=== PATIENT | male | born 1970 | race Caucasian/White ===

== ENCOUNTER 2017-03-05 17:29 | Inpatient (IN) | payer BC ==
--- NOTE | ~2017-03-05 | CN ---
Consultation Report [facility] [address] [place]. [address] NAME: JENNIFER WILLIAMSON : 70 STATUS : ADM IN [facility]#: [id number] AGE: 46 ADM/REG DATE : 03/05/17 MR#: [id number] REPORT SERV DATE: 03/13/17 DICTATED BY: CHRISTINE VALLES DATE: 03/13/17 REPORT STATUS : Draft TRANSCRIBED BY: MODBoni DATE: 03/13/17 GI CONSULTATION DATE OF CONSULTATION: 03/12/2017 REASON FOR CONSULTATION: Anemia and dark stools. HISTORY OF PRESENT ILLNESS: Mr. Williamson is a 46-year-old, white male with a history of morbid obesity, diabetes, who presented to [facility] with increasing anasarca. He was also recently evaluated at [facility] for kidney failure as well as cellulitis and septic joint. He had been noted to have decreasing H and H and is at 7.8 and 23.9 respectively with an MCV of 78.7. His last INR was 1.4 and platelets 231. He does have evidence of iron deficiency anemia, which is probably a combination of anemia of chronic disease. His iron was 9, TIBC 163, iron saturation 6, ferritin 401, and he does report some dark stools, but he reports that this was started during this admission. Denies any bleeding or coffee- ground/hematemesis. No prior endoscopic evaluation. PAST MEDICAL HISTORY: Diabetes, morbid obesity, knee surgery, left foot wound, toe removed. FAMILY HISTORY: Kidney disease. SOCIAL HISTORY: No smoking, alcohol, or drug use. MEDICATIONS: Reviewed. ALLERGIES: REVIEWED. PHYSICAL EXAMINATION: VITAL SIGNS: The patient is afebrile. His vital signs are stable. GENERAL: The patient is morbidly obese. No acute distress. Appears older than stated age and appears chronically ill. HEENT: Atraumatic, normocephalic. Anicteric. Mucous membranes moist. CARDIAC: S1, S2. CHEST: Clear but poor expiratory effort. ABDOMEN: Soft, nontender, and nondistended. Bowel sounds normoactive. LABORATORY DATA: Show WBC 8.8, hemoglobin 7.8, hematocrit 23.9, MCV 78.7, platelets 231. INR is 1.4. Sodium 133, potassium 3.4, chloride 98, bicarb 23, BUN 82, creatinine 3.38, baseline is about 2, glucose 123. Iron studies as dictated above. IMPRESSION/PLAN: Iron-deficiency anemia and anemia of chronic disease with worsening H and H and dark stools. We will go ahead and schedule him for both an EGD and colonoscopy to further evaluate his anemia. I reviewed the procedure indications, risks, benefits, and alternatives with him. We will go ahead and give him a clear liquid diet tomorrow and Consultation Report [address] [place]. [address] NAME: JENNIFER WILLIAMSON : 70 STATUS : ADM IN PAT#: [id number] AGE: 46 ADM/REG DATE : 03/05/17 MR#: [id number] REPORT SERV DATE: 03/13/17 DICTATED BY: CHRISTINE VALLES DATE: 03/13/17 REPORT STATUS : Draft TRANSCRIBED BY: JUAN DATE: 03/13/17 prepped him for EGD and colonoscopy to be performed with anesthesia on Friday. Questions and concerns were addressed. AGUILA/JUAN Christine Valles MD / [id number] CC: MD NERI Valero VICKY L
--- NOTE | ~2017-03-05 | HP ---
History And Physical [facility] [address] [place]. [address] NAME: JENNIFER WILLIAMSON : 70 STATUS : ADM IN [facility]#: [id number] AGE: 46 ADM/REG DATE : 03/05/17 MR#: [id number] REPORT SERV DATE: 03/05/17 DICTATED BY: BLAS MELLO DATE: 03/05/17 REPORT STATUS : Draft TRANSCRIBED BY: MODL DATE: 03/05/17 DATE OF ADMISSION: 03/05/2017 CHIEF COMPLAINT: Referral for admission from Nephrology, Dr. Sung for anasarca. HISTORY OF PRESENT ILLNESS: The patient is a 46-year-old male. He has a past medical history significant for diabetes, hypertension, and dyslipidemia. He had hospitalization 01/01/2017 to 01/07/2017 at [facility] for rule out septic knee cellulitis and acute kidney injury. During that hospitalization, he had a white count as high as 23,000. He had a creatinine as high as 4.94 although several days prior, it had been as high as 5.4. He was seen in consultations by Infectious Disease, Orthopedics, and Renal. He was placed on empiric antibiotics for the possibility of a septic joint although his cultures were apparently negative. He has followup scheduled with Nephrology with his PCP. He apparently also had some anemia. At some point after the surgery on his knee, he reports having several blood transfusions for that. For the past several weeks however, he has been having difficulty with worsening edema. He has seen several physicians including his PCP, a urologist, and today, Nephrology. He has been placed on lymphedema therapy. There has apparently been some attempt at diuresis but he continued to have worsening swelling, eventually presenting with scrotal and abdominal edema. When he saw Nephrology today, they documented a 50 pounds weight gain in 6 weeks and recommended inpatient diuresis and evaluation. He was noted to have a recurrent leukocytosis again today at 24,000 although his renal function was relatively stable with a creatinine of approximately 2. The patient has noted the pain and swelling in his lower extremities, scrotum, and abdomen. He has had some shortness of breath. He knows his blood pressures has been high but overall he has felt fine. He has not had any particular pain in the right knee. He has had no fevers or chills. Difficult to control blood sugars. He has been admitted today for further evaluation and treatment. PAST MEDICAL HISTORY: As covered above. PAST SURGICAL HISTORY: He has had the recent knee surgery. He has had a toe removed and he has had a foot wound in the past. CURRENT MEDICATIONS: Aspirin 81; Lipitor 40; Cartia 240; iron; Lantus 66 at bedtime; and Bystolic 10. ALLERGIES: NONE. FAMILY HISTORY: Both parents . Father had kidney disease. SOCIAL HISTORY: Nondrinker, nonsmoker. REVIEW OF SYSTEMS: HEENT: Negative. CARDIOVASCULAR: No chest pain or palpitations. PULMONARY: Exertional dyspnea. No cough. No purulent sputum. GI: No nausea, vomiting, or dysuria. He reports he is able to urinate although with some History And Physical [address] [place]. [address] NAME: JENNIFER WILLIAMSON : 70 STATUS : ADM IN [facility]#: [id number] AGE: 46 ADM/REG DATE : 03/05/17 MR#: [id number] REPORT SERV DATE: 03/05/17 DICTATED BY: BLAS MELLO DATE: 03/05/17 REPORT STATUS : Draft TRANSCRIBED BY: JUAN DATE: 03/05/17 difficulty, possibly secondary to the edema. He does not feel like he is significantly retaining urine. NEUROMUSCULOSKELETAL: He does complain of generalized tightness of his lower extremities. PHYSICAL EXAMINATION: VITAL SIGNS: On exam, vital signs, initial blood pressure was 206/91, temperature 98.2, pulse 80, and respirations 22. GENERAL: He is awake, alert, oriented, in no acute distress. HEENT: Normocephalic, atraumatic. Sclerae nonicteric. NECK: Supple. HEART: Regular rate and rhythm. LUNGS: Show decreased breath sounds bilaterally, may be due to the size. ABDOMEN: Obese with pitting edema. EXTREMITIES: Show marked dependent edema. His lower extremity lymphedema wraps were removed. He has some dry scabbing on his kaufman. He has some warmth to the right lateral lower knee, a little more so than the left but no obvious effusion or drainage or erythema. He has some generalized erythema to his lower extremities. It is uncertain whether this represents infection or edema. NEUROLOGICAL: Exam is grossly intact. LABS: As forwarded from Nephrology, sodium 137, potassium 4.6, chloride 102, CO2 of 98, BUN and creatinine are 32 and 2.0, and albumin is 2.9. H and H are 8.4 and 27.9, white count was [address], and platelets was 301. ASSESSMENT: 1. Leukocytosis indeterminate etiology. 2. Anasarca. 3. Hypertension. PLAN: 1. The patient has been admitted. 2. Pancultures. 3. We will start a diuretic drip. 4. Consult Nephrology. 5. We will restart his antibiotics this evening. 6. Blood sugar control. 7. Blood pressure control. TARIKF/JUAN Blas Mello M.D. / [id number] History And Physical [address] [address] NAME: JENNIFER WILLIAMSON : 70 STATUS : ADM IN PAT#: [id number] AGE: 46 ADM/REG DATE : 03/05/17 MR#: [id number] REPORT SERV DATE: 03/05/17 DICTATED BY: BLAS MELLO DATE: 03/05/17 REPORT STATUS : Draft TRANSCRIBED BY: JUAN DATE: 03/05/17 CC: Marcie Galloway
--- NOTE | ~2017-03-05 | OP ---
Record Of Operation [facility] [address] [place]. [address] NAME: JENNIFER WILLIAMSON : 70 STATUS : ADM IN [facility]#: [id number] AGE: 46 ADM/REG DATE : 03/05/17 MR#: [id number] REPORT SERV DATE: 03/21/17 DICTATED BY: ALLEN RODRIGUEZ JR. DATE: 03/20/17 REPORT STATUS : Draft TRANSCRIBED BY: JUAN DATE: 03/20/17 DATE OF PROCEDURE: 03/20/2017 SURGEON: Allen Rodriguez M.D. FLAG SIGNALER: Shravan Lott. PROCEDURE: Excisional debridement of skin, subcutaneous tissue, muscle, fascia, left foot ulcer. PREOPERATIVE DIAGNOSIS: Left foot ulcer with necrosis of muscle and fascia. POSTOPERATIVE DIAGNOSIS: Left foot ulcer with necrosis of muscle and fascia. ANESTHESIA: MAC. INDICATIONS: The patient has diabetes with neuropathy, developed ulceration of the foot with infection. This was debrided at the bedside. He has had persistent nonviable tissue, and operative debridement is indicated. FINDINGS: The patient had wound that measured 11.5 x 4 x 2. There was nonviable tissue throughout the wound into the depths and edges. The post debridement size was 14.5 x 4.5 x 4.5. Again, this was dressed with a wound VAC with Veraflo type. DESCRIPTION OF PROCEDURE: With adequate sedation, the foot was prepped and draped sterilely, with the Versajet dissector and also with sharp Araujo scissors. Nonviable tissue was excised from the skin, subcutaneous tissue, muscle, fascia levels removing slough and nonviable tissue necrosis. Tissue was submitted for cultures. The wound was cleansed with the Versajet as dissection was undertaken. Hemostasis assured with electrocautery and pressure. Then the Veraflo was placed with DuoDerm at the edge and saline irrigation. Suction at - 125. He tolerated it well and left the operating room in satisfactory condition. ESTIMATED BLOOD LOSS: 10 mL. ASHLEY/JUAN Allen Rodriguez Jr., M.D. / [id number] CC: Boone Ayala M.D. Jana Galvin
--- NOTE | ~2017-03-05 | DS ---
Discharge Summary [facility] [address] [place]. [address] NAME: JENNIFER WILLIAMSON : 70 STATUS : DIS IN PAT#: [id number] AGE: 46 ADM/REG DATE : 03/05/17 MR#: [id number] REPORT SERV DATE: 04/02/17 DICTATED BY: BINH AYALA DATE: 04/01/17 REPORT STATUS : Draft TRANSCRIBED BY: MODL DATE: 04/01/17 ADMISSION DATE: 03/05/2017 DISCHARGE DATE: 04/01/2017 DISCHARGE DIAGNOSES: 1. Left diabetic foot infection, status post excisional debridement of skin, subcutaneous tissue, muscle, fascia of left foot, 03/14/2017. Status post excisional debridement of skin, subcutaneous tissue, muscle, fascia, left foot ulcer, 03/20/2017. Initial culture positive for Escherichia coli sensitive to Zosyn. Second incision and drainage culture positive for Escherichia coli resistant to Zosyn. Antimicrobial therapy during hospitalization, Zosyn and then cefepime. 2. Type 2 diabetes with hemoglobin A1c 7.2, with retinopathy, neuropathy, and nephropathy. 3. Anasarca secondary to nephrotic syndrome refractory to IV diuretic therapy, treated with hemodialysis with 45 kg weight loss. 4. Acute kidney injury. 5. Chronic kidney disease 4, now stable, off hemodialysis. 6. Hypertension, initially uncontrolled, improved control at discharge. 7. 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 Outpatient followup [facility], Dr. Crow. 8. Leukemoid reaction associated with diabetic foot infection with white blood cell count as high as 28,000, 8.5 at discharge. 9. Subclinical hypothyroidism with TSH 4.13, free T4 of 1.2. 10.Morbid obesity. 11.Upper gastrointestinal bleed from duodenal ulcer per endoscopy, 03/14/2017. 12.Gastritis per endoscopy, 03/14/2017. 13.Small transverse colon polyps per colonoscopy, 03/14/2017. OPERATIONS AND PROCEDURES: See above. PRESENT ILLNESS: This is a 46-year-old white male, who was admitted on 03/05/2017 with leukocytosis and anasarca as outlined on admission history and physical examination dictated by Dr. Silva. HOSPITAL COURSE: Is as outlined on three interim summaries. 1. Dictated by Dr. Franco on 03/17/2017. 2. Dictated by the undersigned on 03/23/2017. 3. Dictated by Dr. Franco on 03/31/2017. He was seen again by the undersigned today, 04/01/2017. He had been seen by Nephrology. His acute kidney injury was improved. Hemodialysis had been discontinued. His PermCath was removed. He was seen by Physical and Occupational Therapy. He was evaluated carefully at bedside. Discharge Summary [facility] [address] [place]. [address] NAME: JENNIFER WILLIAMSON : 70 STATUS : DIS IN PAT#: [id number] AGE: 46 ADM/REG DATE : 03/05/17 MR#: [id number] REPORT SERV DATE: 04/02/17 DICTATED BY: BINH AYALA DATE: 04/01/17 REPORT STATUS : Draft TRANSCRIBED BY: JUAN DATE: 04/01/17 Their impression was that he could be safely managed at home with some medical equipment and home health care, PT and OT. Notably rehab approval had not been received from his insurance company over the past week. A home wound VAC was obtained and attached by the wound care team. He felt better. There were no new issues. He preferred home care if possible. He was out of bed without dizziness. He had lost approximately 45 kg of fluid while hospitalized. There were no new findings on exam. Renal function profile: Sodium 140, potassium 3.8, chloride 102, CO2 of 27, BUN 45, creatinine 3.03, glucose 152, calcium 8.7, phosphorus 3.4, albumin 2.7. CBC; white count 8.5, hemoglobin 8.6, platelets 292,000. Before meals and at bedtime blood sugars on 03/31/2017 of 155, 207, 156, 174. On 04/01/2017, 127, 110, and 136. At this point in his hospitalization, it was felt that he had achieved a level of improvement and stability where he could be safely discharged to home with home health care. He will have PT and OT eval and treatment. There will be medication reconciliation. There will be wound care with his wound VAC under the care of Dr. Gamboa. There will be a home evaluation. If needed, he will have a wheelchair and bedside commode. He will have a weekly renal panel and CBC faxed to [phone] in the Nephrology office. His outpatient followup will be with Dr. Sung, Dr. Gamboa, Dr. Crow, and his primary provider Jana Galvin APN. DISCHARGE MEDICATIONS: Pending outpatient followup. Lipitor 40 mg daily, Cardizem 180 mg twice daily, iron sulfate 325 mg twice daily, hydrochlorothiazide 12.5 mg daily, Bystolic 10 mg daily, torsemide 100 mg twice daily, Apresoline 100 mg every 8 hours, Protonix 40 mg twice daily for six weeks and daily, Lantus 45 units at bedtime, NovoLog level 2 correction scale a.c. Discharge time greater than 30 minutes. DD/MODL Binh Ayala M.D. / [id number] CC: Marcie Nguyen VICKY L John McCarley, M.D. Discharge Summary [address] [address] NAME: JENNIFER WILLIAMSON : 70 STATUS : DIS IN PAT#: [id number] AGE: 46 ADM/REG DATE : 03/05/17 MR#: [id number] REPORT SERV DATE: 04/02/17 DICTATED BY: BINH AYALA DATE: 04/01/17 REPORT STATUS : Draft TRANSCRIBED BY: MODL DATE: 04/01/17 Marcie Gamez Jr., M.D.
--- NOTE | ~2017-03-05 | CN ---
Consultation Report [facility] [address] [place]. [address] NAME: JENNIFER WILLIAMSON : 70 STATUS : ADM IN [facility]#: [id number] AGE: 46 ADM/REG DATE : 03/05/17 MR#: [id number] REPORT SERV DATE: 03/06/17 DICTATED BY: KENNETH JENNINGS DATE: 03/06/17 REPORT STATUS : Draft TRANSCRIBED BY: MODBoni DATE: 03/06/17 NEPHROLOGY CONSULTATION DATE OF CONSULTATION: INDICATION FOR CONSULTATION: Anasarca of chronic kidney disease. HISTORY OF PRESENT ILLNESS: Mr. Williamson is a 46-year-old male, who was followed by Dr. Sung and sent from the office due to worsening fluid gain/anasarca. He was initially seen during hospitalization in 01/2017 at [facility] for acute kidney injury with creatinine elevated to 5.4. He had improvement of his creatinine to 2.8 at time of discharge, and values in the outpatient setting have ranged from 1.4 to 2.4 with his baseline likely 2.0 to 2.4. Currently, his admission creatinine was 1.62 and has risen to 1.84 with diuresis. He notes approximately 50-pound weight gain over the prior six weeks. He has had problems with lymphedema over a year and has been seen at the [facility]. His edema initiates in his lower extremities, then moves upward to his scrotum and abdomen. He has nephrotic-range proteinuria and longstanding diabetes with associated retinopathy. Apparently, he was off diuretics for a period of time and receiving antibiotics for cellulitis during the time of his weight gain. PAST MEDICAL HISTORY: CKD stage 3B with baseline creatinine 2.0 to 2.4; nephrotic syndrome, likely secondary to diabetes mellitus; history of cellulitis; hypertension; history of hyperkalemia; type 2 diabetes mellitus; diabetic retinopathy; dyslipidemia; anxiety; depression; asthma. PAST SURGICAL HISTORY: Recent knee surgery and amputation of toes. SOCIAL HISTORY: No prior use of tobacco or illicit drugs. He is . 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 He has four children, ranging in age from 2 to 23. FAMILY HISTORY: Mother of stomach cancer. Father from complications of diabetes, which led to end-stage renal disease and requirement of dialysis. He has one brother, who is in good health. REVIEW OF SYSTEMS: HEENT: No change in visual acuity. He is receiving ocular injections for diabetic retinopathy. No epistaxis. No otic infection. No pharyngitis. PULMONARY: Notes shortness of breath with exertion and dry cough. No hemoptysis. CARDIAC: Notes lower extremity edema. Denies any chest pain. Does have exertional dyspnea. GI: No nausea, vomiting, or melena. : No gross hematuria, dysuria, or pyuria. MUSCULOSKELETAL: Pain in lower extremities. Consultation Report [facility] [address] [place]. [address] NAME: JENNIFER WILLIAMSON : 70 STATUS : ADM IN [facility]#: [id number] AGE: 46 ADM/REG DATE : 03/05/17 MR#: [id number] REPORT SERV DATE: 03/06/17 DICTATED BY: KENNETH JENNINGS DATE: 03/06/17 REPORT STATUS : Draft TRANSCRIBED BY: JUAN DATE: 03/06/17 INTEGUMENT: Recent cellulitis. He does have dry skin over lower extremities. NEUROLOGIC: No lateralizing weakness or seizure activity. Remainder of 12-point review of systems is negative. PHYSICAL EXAMINATION: GENERAL: Pleasant white male, alert and cooperative. VITAL SIGNS: Blood pressure 154/67, temperature 98.2, pulse 77, respiratory rate 16. HEENT: Eyes with no scleral icterus. Pupils equal and reactive to light. Fundi with changes of diabetic retinopathy. Nares patent, no lesions. Throat, no injection, mucous membranes moist. NECK: No thyromegaly, masses, or bruits. CHEST/LUNGS: Some decreased breath sounds at bases. No dullness. No wheezing. CARDIAC: Regular rate and rhythm. Questionable 1/6 systolic ejection murmur. No gallop or rub. ABDOMEN: Obese. Normoactive bowel sounds. Unable to appreciate hepatosplenomegaly or bruits. No masses. : With scrotum swelling. EXTREMITIES: 4+ brawny edema. No calf tenderness. DERMIS: Dry skin over lower extremities. Unable to appreciate any active cellulitis. No rash. MUSCULOSKELETAL: No deformity outside of amputation of digits from feet. NEUROLOGIC: Cranial nerves intact. No lateralizing weakness. IMPRESSION: 1. Chronic kidney disease 3B with baseline creatinine ranging 2 to 2.4. 2. Nephrotic syndrome. 3. Type 2 diabetes mellitus. 4. Worsening anemia. 5. Leukocytosis, source unclear. 6. Worsening anasarca with 50-pound weight gain over six weeks, apparently off diuretic therapy. 7. Diabetic retinopathy, receiving ocular injections. 8. Dyslipidemia. 9. Anxiety and depression. 10.Asthma. 11.History of cellulitis. PLAN: 1. Evaluate anemia. 2. Labs. 3. Add Zaroxolyn. 4. Concur with Bumex infusion. 5. Add albumin to mobilize fluids. 6. Concur with antibiotics. Consultation Report [facility] [id number] [place]. [address] NAME: JENNIFER WILLIAMSON : 70 STATUS : ADM IN [facility]#: [id number] AGE: 46 ADM/REG DATE : 03/05/17 MR#: [id number] REPORT SERV DATE: 03/06/17 DICTATED BY: KENNETH JENNINGS DATE: 03/06/17 REPORT STATUS : Draft TRANSCRIBED BY: JUAN DATE: 03/06/17 LIZANDRO/JUAN Kenneth Jennings M.D. / [id number] CC: Marcie Galloway Vicky L
--- NOTE | ~2017-03-05 | EGD ---
EGD REPORT [facility] [address] [place] [address] NAME: JENNIFER WILLIAMSON : 70 STATUS : ADM IN PAT#: [id number] AGE: 46 ADM/REG DATE : 03/05/17 MR#: [id number] REPORT SERV DATE: 03/14/17 DICTATED BY: CHRISTINE DANIELS DATE: 03/14/17 REPORT STATUS : Draft [facility]ANSCRIBED BY: [facility] DATE: 03/14/17 [facility] Patient Name: Jennifer Williamson Date of : 1970 Attending MD: CHRISTINE DANIELS, Procedure Date No Time: 03/14/2017 Procedure: Colonoscopy Indications: Anemia Medicines: Propofol per Anesthesia Complications: No immediate complications. Estimated blood loss: None. Procedure: After I obtained informed consent, the scope was passed under direct vision. Throughout the procedure, the patient's blood pressure, pulse, and oxygen saturations were monitored continuously. The CF [id number] was introduced through the anus and advanced to the cecum, identified by appendiceal orifice and ileocecal valve. The colonoscopy was performed with ease. The patient tolerated the procedure well. The quality of the bowel preparation was fair. Findings: Two polyps were found in the transverse colon and in the ascending colon. The polyps were 3 mm in size. No biopsies or other specimens were collected for this exam. Non-bleeding internal hemorrhoids were found during retroflexion and were Grade I (internal hemorrhoids that do not prolapse). Anal papilla(e) were hypertrophied. Impression: - Two 3 mm polyps in the transverse colon and in the ascending colon. No specimens collected. - Non-bleeding internal hemorrhoids. - Anal papilla(e) were hypertrophied. Recommendation: - Return patient to hospital [facility] for ongoing care. - Continue present medications. - Repeat colonoscopy in 6 months because the bowel preparation was poor. Procedure Code(s): --- Professional --- 59083, Colonoscopy, flexible, proximal to splenic flexure; diagnostic, with or without collection of specimen(s) by brushing or washing, with or without colon decompression (separate procedure) Diagnosis Code(s): --- Professional --- EGD REPORT [facility] [address] [place]. [address] NAME: JENNIFER WILLIAMSON : 70 STATUS : ADM IN [facility]#: [id number] AGE: 46 ADM/REG DATE : 03/05/17 MR#: [id number] REPORT SERV DATE: 03/14/17 DICTATED BY: CHRISTINE DANIELS DATE: 03/14/17 REPORT STATUS : Draft TRANSCRIBED BY: [employer] DATE: 03/14/17 D12.3, Benign neoplasm of transverse colon D12.2, Benign neoplasm of ascending colon K64.1, Second degree hemorrhoids K62.89, Other specified diseases of anus and rectum D64.9, Anemia, unspecified CPT copyright 2013 [employer]. All rights reserved. The codes documented in this report are preliminary and upon grocery carrier review may be revised to meet current compliance requirements. CHRISTINE DANIELS, 03/14/2017 11:29 AM This report has been signed electronically. Number of Addenda: 0 Note Initiated On: 03/14/2017 10:42 AM Scope Withdrawal Time 0 hours 4 minutes 24 seconds [id number] [place] [address]
--- NOTE | ~2017-03-05 | EGD ---
EGD REPORT [facility] [address] [address] NAME: JENNIFER WILLIAMSON : 70 STATUS : ADM IN PAT#: [id number] AGE: 46 ADM/REG DATE : 03/05/17 MR#: [id number] REPORT SERV DATE: 03/14/17 DICTATED BY: CHRISTINE DANIELS DATE: 03/14/17 REPORT STATUS : Draft TRANSCRIBED BY: [facility] DATE: 03/14/17 Endoscopy Center Patient Name: Jennifer Williamson Date of : 1970 Attending MD: CHRISTINE DANIELS, Procedure Date No Time: 03/14/2017 Procedure: Upper GI endoscopy Indications: Anemia Medicines: Propofol per Anesthesia Complications: No immediate complications. Estimated blood loss: None. Procedure: After obtaining informed consent, the endoscope was passed under direct vision. Throughout the procedure, the patient's blood pressure, pulse, and oxygen saturations were monitored continuously. The GIF [id number] was introduced through the mouth, and advanced to the second part of duodenum. The upper GI endoscopy was accomplished with ease. The patient tolerated the procedure well. Findings: Two diminuitive (11 o'clock and 1 o'clock positions) nodules were found at the gastroesophageal junction. No biopsies or other specimens were collected for this exam. The Z-line was found 42 cm from the incisors. Mild inflammation characterized by congestion (edema) and erythema was found in the gastric body and in the gastric antrum. No biopsies or other specimens were collected for this exam. One oozing deep and cratered duodenal ulcer with oozing hemorrhage (Pancho Class Ib) was found in the duodenal bulb. The lesion was 11 mm in largest dimension. Due to the deep nature of the ulcer it was decided to inject around the ulcer w epinephrine. Area was successfully injected with 6 mL of a 1:10,000 solution of epinephrine for hemostasis at four quadrants of the ulcer, paying particular attention to the distal part which had been actively oozing). At the proximal injection site there was persistent oozing and so one hemostatic clip was successfully placed. Bleeding had stopped at the end of the procedure. Estimated blood loss: none. The 2nd part of the duodenum was normal. Impression: - Nodule found in the esophagus. No specimens collected. - Z-line 42 cm from the incisors. - Gastritis. No specimens collected. - One duodenal ulcer with oozing hemorrhage (Pancho Class Ib). Injected. Clip was placed. - Normal 2nd part of the duodenum. EGD REPORT [address] [place]. [address] NAME: JENNIFER WILLIAMSON : [birth year] STATUS : ADM IN [facility]#: [id number] AGE: 46 ADM/REG DATE : 03/05/17 MR#: [id number] REPORT SERV DATE: 03/14/17 DICTATED BY: CHRISTINE DANIELS DATE: 03/14/17 REPORT STATUS : Draft TRANSCRIBED BY: [employer] DATE: 03/14/17 Recommendation: - Return patient to hospital gil for ongoing care. - NPO. - Give Protonix (pantoprazole): 8 mg/hr IV by continuous infusion. - No aspirin, ibuprofen, naproxen, or other non-steroidal anti-inflammatory drugs. - If patient re-bleeds recommend repeat EGD vs. interventional radiology Procedure Code(s): --- Professional --- 81539, Esophagogastroduodenoscopy, flexible, transoral; with control of bleeding, any method Diagnosis Code(s): --- Professional --- K22.8, Other specified diseases of esophagus K29.70, Gastritis, unspecified, without bleeding K26.4, Chronic or unspecified duodenal ulcer with hemorrhage D64.9, Anemia, unspecified CPT copyright 2013 [employer]. All rights reserved. The codes documented in this report are preliminary and upon aerial installer review may be revised to meet current compliance requirements. CHRISTINE DANIELS, 03/14/2017 11:09 AM This report has been signed electronically. Number of Addenda: 0 Note Initiated On: 03/14/2017 10:42 AM Scope Withdrawal Time 0 hours 0 minutes 0 seconds [id number] [place] [address]
--- NOTE | ~2017-03-05 | IDS ---
Interim Discharge Summary [facility] [address] [place]. [address] NAME: JENNIFER WILLIAMSON : [birth year] STATUS : ADM IN [facility]#: [id number] AGE: 46 ADM/REG DATE : 03/05/17 MR#: [id number] REPORT SERV DATE: 03/17/17 DICTATED BY: ANÍBAL DANIEL DATE: 03/17/17 REPORT STATUS : Draft TRANSCRIBED BY: MODL DATE: 03/17/17 ADMISSION DATE: 03/05/2017 DISCHARGE DATE: WORKING DIAGNOSES: 1. Left diabetic foot infection, status post incision and drainage on 03/14/2017. Wound cultures are growing Escherichia coli. 2. Upper gastrointestinal bleed with acute blood loss anemia, requiring at least six packs of packed red blood cells due to a duodenal ulcer. The patient is status post EGD on 03/14/2017. 3. Anasarca with lymphedema as well as acute kidney injury and nephrotic syndrome, currently on dialysis. 4. Morbid obesity. 5. Diabetes type 2. 6. Hypertension. CONSULTS: 1. Nephrology. 2. GI. 3. General Surgery. PROCEDURES: 1. PermCath placement on 03/13/2017. 2. EGD performed on 03/14/2017 that revealed a bleeding duodenal ulcer. 3. An I and D of the left foot wound on 03/14/2017 revealed a 9.5 x 3.5 x 2.5 cm wound with a tunnel at 6 o'clock as deep as 3 cm. HOSPITAL COURSE: This is a 46-year-old gentleman who was admitted to the hospital with anasarca and lymphedema as well as acute kidney injury and nephrotic syndrome. For details, please refer to excellent H and P by Dr. Silva. In summary, the patient was admitted and was seen by Nephrology and was given IV diuretics. The patient unfortunately failed to respond to diuretic therapy, and the patient was hesitant to undergo dialysis but on , the patient finally agreed to dialysis and had a PermCath placed. The patient has been getting hemodialysis and thus far we have pulled off more than 40 pounds of fluids over the past week and weekend. The patient is still making urine and per Nephrology, they feel that the patient has a fairly good chance of recovery down the line. In terms of left diabetic foot infection, the patient was seen by Dr. Ayala and Surgery was consulted. By the time I assumed care, the patient was on vancomycin and Zosyn. At that point in time, it was not very clear to Surgery that the patient needed an I and D; however, over time the patient's left foot infection got worse and eventually needed an I and D. The I and D was performed on 03/14/2017 as mentioned above and thus far wound cultures are growing E. coli that is susceptible to Zosyn. Of note, the patient has had persistent leukocytosis and was even seen by Oncology but without clear source of infection, it was initially felt to be due to inflammatory reaction; however, it is more clear where the source of infection is at this point in time and we are monitoring his white blood cell Interim Discharge Summary [address] [place]. [address] NAME: JENNIFER WILLIAMSON : 70 STATUS : ADM IN PAT#: [id number] AGE: 46 ADM/REG DATE : 03/05/17 MR#: [id number] REPORT SERV DATE: 03/17/17 DICTATED BY: ANÍBAL DANIEL DATE: 03/17/17 REPORT STATUS : Draft TRANSCRIBED BY: JUAN DATE: 03/17/17 count along with the antibiotic therapy. Tentative plan is to get a wound VAC; however, the definitive decision will come from Surgery. Also during the past week, the patient actually developed an acute upper GI bleed. The patient's hemoglobin had declined to 6 on and the patient was having gross black bowel movements. The patient was on heparin for DVT prophylaxis, which was discontinued and the patient was started on Protonix drip. The patient was seen by GI and he underwent EGD on 03/14/2017. Results are as mentioned above, and the patient has remained on IV Protonix since. The patient's diet was advanced to full liquid diet yesterday, and he has been tolerating it well. The patient required a total of 4 units of PRBCs on the floor and 2 additional units during dialysis over the weekend, but since then, the patient's hemoglobin has stabilized. The patient remains on IV Protonix drip which is being managed by GI. Some of other the patient's concurrent medical issues are hypertension , diabetes, morbid obesity, which have thus far been stable. My hope is that with the above acute issues being addressed, the patient will soon be able to be discharged to perhaps SNF given multiple ongoing issues especially with the diabetic foot infection that will require more close monitoring and therapy. EREN/MODL Aníbal Daniel MD / [id number] CC: MD Jana Valero
--- NOTE | ~2017-03-05 | IDS ---
Interim Discharge Summary [facility] [address] [place]. [address] NAME: JENNIFER WILLIAMSON : [birth year] STATUS : ADM IN [facility]#: [id number] AGE: 46 ADM/REG DATE : 03/05/17 MR#: [id number] REPORT SERV DATE: 03/31/17 DICTATED BY: ANÍBAL DANIEL DATE: 03/31/17 REPORT STATUS : Draft TRANSCRIBED BY: MODL DATE: 03/31/17 ADMISSION DATE: 03/05/2017 DISCHARGE DATE: WORKING DIAGNOSES: 1. Left-sided diabetic foot infection with Escherichia coli status post extensive excisional debridement on 03/14/2017 and a second debridement on 03/20/2017. Wound cultures, positive Escherichia coli, initially sensitive to Zosyn, but repeat cultures, resistant to Zosyn. The patient is currently on day #9 of cefepime. 2. Significant leukocytosis up to 30,000 related to above, the patient's white blood cell count has been normal throughout the past week after the debridement as well as IV antibiotic therapy. 3. Anasarca secondary to nephrotic syndrome, refractory to IV diuretic therapy. The patient is currently on hemodialysis and the patient has lost about 75 pounds since admission. The patient was supposed to get hemodialysis today, but this was held as the patient's renal function is improving. 4. Acute kidney injury, on chronic kidney disease, stage is unclear at this time, but the patient definitely started making urine and was able to not gain any further weight over the weekend without hemodialysis. 5. Upper gastrointestinal bleed from duodenal ulcer status post endoscopy on 03/14/2017. The patient since has been stable without any further bleeds. 6. Type 2 diabetes with hemoglobin A1c of 7.2. The patient also has retinopathy, neuropathy, and nephropathy. 7. Hypertension. 8. Morbid obesity. 9. Subclinical hypothyroidism. PROCEDURES: None during the past week from 03/25/2017 to 03/31/2017. CONSULTANTS: Nephrology. HOSPITAL COURSE: This is a 46-year-old gentleman who has had quite a prolonged and complicated hospital stay thus far. This interim discharge summary covers the events from 03/25/2017 through 03/31/2017. For details regarding earlier days of hospital stay, please refer to interim discharge summaries dictated both by myself as well as Dr. Ayala. During this past week, the patient has simply been awaiting insurance approval for a SNF transfer. The patient has an out of state insurance and thus it has been a delayed process. Thankfully, the patient's renal function has slowly started improving and the patient was not gaining as much weight in between dialysis. The patient was monitored over the weekend with tentative plans to repeat hemodialysis on Friday, which is today; however, the patient was able to make enough urine to not gain any further weight and the patient's creatinine remained stable around 3. The patient was thus not dialyzed today. Currently, the tentative plan is to await insurance response on the patient's transfer to [facility]. Another possible plan is if the patient does no longer need hemodialysis, the patient may actually be able to return home with home health along with portable wound VAC and simply follow up as an outpatient with Nephrology as well as General Surgery. Of note, the Interim Discharge Summary [address] [address] NAME: JENNIFER WILLIAMSON : 70 STATUS : ADM IN PAT#: [id number] AGE: 46 ADM/REG DATE : 03/05/17 MR#: [id number] REPORT SERV DATE: 03/31/17 DICTATED BY: ANÍBAL DANIEL DATE: 03/31/17 REPORT STATUS : Draft TRANSCRIBED BY: JUAN DATE: 03/31/17 patient's Vaughan catheter was removed today. Also of note, the patient remains on IV cefepime for the E coli and foot wound. This is his ninth day and tentative planning is to continue antibiotics for 10-14 days, but the patient should be able to tolerate p.o. antibiotic therapy should he go home. EREN/JUAN Aníbal Daniel MD / [id number] CC: MD Cynthia Valero NP
--- NOTE | ~2017-03-05 | IDS ---
Interim Discharge Summary [facility] [address] [place]. [address] NAME: JENNIFER WILLIAMSON : 70 STATUS : ADM IN [facility]#: [id number] AGE: 46 ADM/REG DATE : 03/05/17 MR#: [id number] REPORT SERV DATE: 03/23/17 DICTATED BY: BINH AYALA DATE: 03/23/17 REPORT STATUS : Draft TRANSCRIBED BY: MODL DATE: 03/23/17 ADMISSION DATE: 03/05/2017 DISCHARGE DATE: Interim summary covers period 03/18/2017 through 03/23/2017. CURRENT DIAGNOSES: 1. Left diabetic foot infection, status post excisional debridement of skin, subcutaneous tissue, muscle, fascia of left foot, 03/14/2017. Status post excisional debridement of skin, subcutaneous tissue, muscle, fascia, left foot ulcer, 03/20/2017. Initial culture positive for Escherichia coli sensitive to Zosyn. Second incision and drainage culture positive for Escherichia coli, now resistant to Zosyn. Antimicrobial therapy changed today. 2. Type 2 diabetes with hemoglobin A1c 7.2 with retinopathy, neuropathy, and nephropathy. 3. Anasarca secondary to nephrotic syndrome refractory to IV diuretic therapy, currently on ultrafiltration with approximately 60-pound weight loss. 4. Acute kidney injury. 5. Chronic kidney disease, stage unclear at this time. 6. Hypertension, uncontrolled. Additional therapy started today. 7. Monoclonal gammopathy with faint lambda restriction, on serum immunofixation and faint IgG kappa restriction, on urine immunofixation. 8. Subclinical hypothyroidism with TSH 4.13, free T4 of 1.2. 9. Morbid obesity. 10.Upper gastrointestinal bleed from duodenal ulcer, endoscopy, 03/14/2017. 11.Gastritis per upper endoscopy, 03/14/2017. 12.Small transverse colon polyps for colonoscopy, 03/14/2017. OPERATIONS AND PROCEDURES DURING THIS INTERVAL: See above. INTERIM SUMMARY: He was continued on Zosyn for his diabetic foot infection. He was taken back to the OR by Dr. Gamboa on 03/20/2017. Findings were that his wound measured 11.5 x 4 x 2. There was nonviable tissue throughout the wound into the depths and edges. The post- debridement size was 14.5 x 4.5 x 4.5. Post I and D, the wound was dressed with a wound VAC with a VeraFlo type. Wound culture from the OR is now growing E. coli resistant to Zosyn. Antimicrobial therapy changed to Azactam dosing by pharmacy. He has continued with three times per week ultrafiltration. He has lost 60 pounds of fluid. He has not had recurrent gastrointestinal bleeding with a relatively stable hemoglobin. His blood sugar control has been excellent on basal bolus correction insulin. He has a faint monoclonal gammopathy of uncertain significance. Free light chains and quantitative immunoglobulins are being checked. In the absence of a significant Interim Discharge Summary [address] [place]. [address] NAME: JENNIFER WILLIAMSON : 70 STATUS : ADM IN [facility]#: [id number] AGE: 46 ADM/REG DATE : 03/05/17 MR#: [id number] REPORT SERV DATE: 03/23/17 DICTATED BY: BINH AYALA DATE: 03/23/17 REPORT STATUS : Draft TRANSCRIBED BY: MODL DATE: 03/23/17 abnormality, followup is planned without bone marrow evaluation at this time. He has been seen by Physical Therapy and Occupational Therapy. Inpatient rehab was recommended. Currently, we are looking at [facility] and [facility] as destination possibilities. Hospitalist care to be assumed by [address] team on 03/25/2017. DD/MODL Binh Ayala M.D. / [id number] CC: Marcie Nguyen VICKY L.
--- NOTE | ~2017-03-05 | OP ---
Record Of Operation [facility] [address] [place]. [address] NAME: JENNIFER WILLIAMSON : 70 STATUS : ADM IN [facility]#: [id number] AGE: 46 ADM/REG DATE : 03/05/17 MR#: [id number] REPORT SERV DATE: 03/17/17 DICTATED BY: ALLEN RODRIGUEZ JR. DATE: 03/14/17 REPORT STATUS : Draft TRANSCRIBED BY: JUAN DATE: 03/14/17 DATE OF PROCEDURE: 03/14/2017 SURGEON: Allen Rodriguez M.D. PROCEDURE: Excisional debridement of skin, subcutaneous tissue, muscle, fascia of left foot. PREOPERATIVE DIAGNOSIS: Left foot ulcer/abscess. POSTOPERATIVE DIAGNOSIS: Left foot ulcer/abscess. ANESTHESIA: Anesthetic. INDICATIONS: The patient has a history of diabetes and neuropathy. The patient was admitted with extreme body fluid overload. He was noted to have an elevated white count. He did have some blistering in his left foot, and superficial removal did show a minimal amount of fluid and a foreign body in the forefoot, this was dressed. He had a progressive development of fluctuance more towards the mid foot with ulceration and consistent with an infection, and debridement was indicated. FINDINGS: There was a small ulcer measuring 1 x 1 in the mid foot. Post debridement, this was 9.5 x 3.5 x 2.5 with a tunnel at 6 o'clock, 3 cm. This did extend down into the fascial layer. Tissue was submitted for culture. The tissue was viable. DESCRIPTION OF PROCEDURE: The foot was anesthetic. With a 10 blade, an incision was made into the skin and the skin, subcutaneous tissue, muscle, fascia were excised along with the suture as well removing the nonviable, infected tissue down to a healthy, viable bleeding tissue. It was then irrigated with a wound cleanser and packed with Aquacel Ag and sterile gauze, and a sterile wrap dressing. ESTIMATED BLOOD LOSS: 10 mL. He tolerated it well. ASHLEY/JUAN Allen Rodriguez Jr., M.D. / [id number] CC: MD Cynthia Valero, H[employer]TER
--- NOTE | ~2017-03-05 | CN ---
Consultation Report [facility] [address] [place]. [address] NAME: JENNIFER WILLIAMSON : 70 STATUS : ADM IN [facility]#: [id number] AGE: 46 ADM/REG DATE : 03/05/17 MR#: [id number] REPORT SERV DATE: 03/07/17 DICTATED BY: JUNG HENNING DATE: 03/07/17 REPORT STATUS : Draft TRANSCRIBED BY: MODL DATE: 03/07/17 CONSULTATION DATE OF CONSULTATION: 03/07/2017 REASON FOR REFERRAL: Persistent leukocytosis. HISTORY OF PRESENT ILLNESS: Mr. Williamson is 46-year-old gentleman. He has severe obesity and has also developed worsening anasarca. He has acute kidney injury on top of chronic kidney disease, he has type 2 diabetes, and nephrotic syndrome. Within that setting, he has had chronic leukocytosis with white blood cell count in the 15,000 to 25,000 range. Of note, he did have a single and normal white blood cell count and some in the 10,000 to 15,000 range within the last two months. I personally reviewed his peripheral blood smear today which is similar to differentials recorded throughout this illness. His white count is approximately 20,000 with neutrophil predominance, however, there is a left shift with a band forms present. There were some metamyelocytes as well. He has anemia. His platelets are normal. He does report that as a child he had slightly high white blood cell counts. He has had cellulitis and has chronic erythema of the edematous and obese extremities. PAST MEDICAL HISTORY: As per the HPI. FAMILY HISTORY: Negative for blood disorders. SOCIAL HISTORY: He occasionally drinks alcohol. He has never smoked. He is . REVIEW OF SYSTEMS: Complete review of systems was negative except as per the HPI. PHYSICAL EXAMINATION: GENERAL: Reveals an obese gentleman. He is in no distress. VITAL SIGNS: 99.5, 178/93, 75, 25. He is 179 kg. HEENT: Eye exam shows that the lids and conjunctivae without lesions. Pupils are equal, round, and reactive. Mouth, lips and gums show no abnormalities. Oropharynx without thrush or stomatitis. NECK: Supple. There is no thyromegaly or mass. CARDIOVASCULAR: Reveals regular rate and rhythm with murmur. There is 3+ lower extremity edema bilaterally. SKIN: Shows erythema of the lower extremities. ABDOMEN: Obese. I could not palpate any mass or organomegaly. LUNG: Lungs have distant breath sounds with normal respiratory effort. PSYCHIATRIC: Exam shows normal insight and judgment, Appropriate mood and affect. Consultation Report [facility] [id number] [place]. [address] NAME: JENNIFER WILLIAMSON : 70 STATUS : ADM IN PAT#: [id number] AGE: 46 ADM/REG DATE : 03/05/17 MR#: [id number] REPORT SERV DATE: 03/07/17 DICTATED BY: JUNG HENNING DATE: 03/07/17 REPORT STATUS : Draft TRANSCRIBED BY: MODBoni DATE: 03/07/17 DATA REVIEW: As per the HPI. ASSESSMENT: Persistent leukocytosis. I suspect this is inflammatory related to stasis dermatitis. However, given the persistence in the left shift, we will check a FISH test for BCR-ABL to rule out chronic myeloid leukemia. I will follow along peripherally with you. SYLVIA/JUAN Jung Henning M.D. / [id number] CC: Parker Ashton Jr, MD VICKY L COOKE, NP John McCarley, M.D.
[~2017-03-05 17:29] MED LIST: ASAB PO; BYSTOLIC20 MG PO; CARDCD240 PO; EDARBYCLOR 40-1 EACH PO; FERROUS SULF325 M1 PO; GLUCOPHAGE1000 MG PO; HYGROTON 25 MG25 MG PO; JANUMET1 TA1 PO; L40 PO; LANTUSCART SC; LEVAQUIN750 MG PO; LIPITOR40 PO; NORCO1 TAB PO; NORV5 PO; SPIRO25 PO
[2017-03-05] MEDS ORDERED: LIPITOR40 PO (18:28)
[2017-03-05] MEDS ORDERED: HALF81 PO (18:28)
[2017-03-05] MEDS ORDERED: FERROUS SULF325 M1 PO (18:28)
[2017-03-05] MEDS ORDERED: LANTUSCART SC (18:28)
[2017-03-05] MEDS ORDERED: CARTIA XT240 MG/24 PO (18:28)
[2017-03-05] MEDS ORDERED: BYSTOLIC10 MG PO (18:29)
[2017-03-05 23:10] LABS: B NATRIURETIC PEPTIDE (BNP) 431.1 PG/ML (< 100.0)
[2017-03-05 23:14] LABS: CALCIUM, SERUM 8.8 MG/DL (8.5-10.4); CHLORIDE, SERUM 108 MMOL/L (96-112); CO2 (CARBON DIOXIDE) 22 MMOL/L (24-34); CREATININE 2.05 MG/DL (0.70-1.30); GFR AFRICAN AMERICAN 44 ML/MIN (>=60); GFR NON AFRICAN AMERICAN 38 ML/MIN (>=60); POTASSIUM, SERUM 4.4 MMOL/L (3.5-5.3); SGOT(AST) 22 U/L (5-40); SGPT(ALT) 19 U/L (5-65); SODIUM, SERUM 139 MMOL/L (135-148); TOTAL BILIRUBIN 0.6 MG/DL (0-1.2); TROPONIN I 0.03 NG/ML (<0.05)
[2017-03-05 23:18] LABS: A/G RATIO 0.5 (0.7-1.9); ALBUMIN 2.4 G/DL (3.5-5.0); ALKALINE PHOSPHATASE 183 U/L (45-117); BUN (BLOOD UREA NITROGEN) 35 MG/DL (6-23); GLOBULIN 5.3 G/DL (2.5-4.1); GLUCOSE, SERUM 102 MG/DL (60-99); TOTAL PROTEIN 7.7 G/DL (6.0-8.5)
[2017-03-05 23:29] LABS: PROCALCITONIN 0.17 ng/mL (<0.5)
[2017-03-06 02:26] LABS: ASCORBIC ACID (UR NOT ORDER) NEG (NEG); BILIRUBIN, URINE NEGATIVE (NEG); KETONE, URINE NEGATIVE (NEG); LEUKOCYTE ESTERASE(NOT OR NEG (NEG); WBC (NOT ORDERED) (RFLEX) 2 (0-5)
[2017-03-06 05:55] LABS: BASOPHILS 0.1 %; BASOPHILS ABSOLUTE 0.02 10/3/uL (0.0-0.16); EOSINOPHILS 0 %; EOSINOPHILS ABSOLUTE 0.01 10/3/uL (0.0-0.53); HEMOGLOBIN 7.6 g/dL (13.6-17.8); IMMATURE GRANULOCYTES 0.4 %; IMMATURE GRANULOCYTES ABSOLUTE 0.08 10/3/uL (0.0-0.11); LYMPHOCYTES 3.5 %; LYMPHOCYTES ABSOLUTE 0.74 10/3/uL (0.67-4.30); MEAN CORPUSCULAR HEMOGLOB 26.6 pg (26.0-34.0); MEAN PLATELET VOLUME 10.3 fL (9.2-13.0); MONOCYTES 6.7 %; MONOCYTES ABSOLUTE 1.41 10/3/uL (0.21-1.20); NEUTROPHILS 89.3 %; NEUTROPHILS ABSOLUTE 18.86 10/3/uL (2.02-8.40); PLATELET COUNT 259 10/3/uL (150-400); RBC DISTRIBUTION WIDTH 16.1 % (12.0-16.0); RED CELL COUNT 2.86 10/6/uL (4.7-6.1)
[2017-03-06 06:04] LABS: HEMATOCRIT 24.5 % (40.0-51.0); MANUAL DIFF NO %; MEAN CORPUSCULAR VOLUME 85.7 fL (80-100); WHITE BLOOD CELLS 21.1 10/3/uL (4.5-10.5)
[2017-03-06 06:31] LABS: BUN (BLOOD UREA NITROGEN) 36 MG/DL (6-23); CALCIUM, SERUM 8.2 MG/DL (8.5-10.4); CHLORIDE, SERUM 108 MMOL/L (96-112); CO2 (CARBON DIOXIDE) 21 MMOL/L (24-34); CREATININE 1.84 MG/DL (0.70-1.30); GFR AFRICAN AMERICAN 50 ML/MIN (>=60); GFR NON AFRICAN AMERICAN 43 ML/MIN (>=60); GLUCOSE, SERUM 87 MG/DL (60-99); PHOSPHORUS, SERUM 3.7 MG/DL (2.5-4.5); POTASSIUM, SERUM 4.4 MMOL/L (3.5-5.3); SODIUM, SERUM 139 MMOL/L (135-148)
[2017-03-06 06:32] LABS: ALBUMIN 1.9 G/DL (3.5-5.0)
[2017-03-06 11:38] LABS: GLYCOHEMOGLOBIN (HbA1c) 7.2 % (4.7-6.1)
[2017-03-07 04:51] LABS: BASOPHILS 0 %; BASOPHILS ABSOLUTE 0.01 10/3/uL (0.0-0.16); EOSINOPHILS 0 %; HEMATOCRIT 24.1 % (40.0-51.0); HEMOGLOBIN 7.6 g/dL (13.6-17.8); IMMATURE GRANULOCYTES 0.4 %; IMMATURE GRANULOCYTES ABSOLUTE 0.08 10/3/uL (0.0-0.11); LYMPHOCYTES 2.9 %; LYMPHOCYTES ABSOLUTE 0.61 10/3/uL (0.67-4.30); MEAN CORPUS HGB CONC 31.5 g/dL (32.0-36.0); MEAN CORPUSCULAR HEMOGLOB 27.4 pg (26.0-34.0); MONOCYTES 6.3 %; MONOCYTES ABSOLUTE 1.34 10/3/uL (0.21-1.20); NEUTROPHILS 90.4 %; NEUTROPHILS ABSOLUTE 19.11 10/3/uL (2.02-8.40); PLATELET COUNT 236 10/3/uL (150-400); RBC DISTRIBUTION WIDTH 15.9 % (12.0-16.0); RED CELL COUNT 2.77 10/6/uL (4.7-6.1); WHITE BLOOD CELLS 21.2 10/3/uL (4.5-10.5)
[2017-03-07 05:01] LABS: MANUAL DIFF NO %
[2017-03-07 05:34] LABS: % IRON SAT 6 % (20-50); CALCIUM, SERUM 8.4 MG/DL (8.5-10.4); CHLORIDE, SERUM 107 MMOL/L (96-112); CO2 (CARBON DIOXIDE) 23 MMOL/L (24-34); CREATININE 2.26 MG/DL (0.70-1.30); FERRITIN 401 NG/ML (26-388); GFR AFRICAN AMERICAN 39 ML/MIN (>=60); GFR NON AFRICAN AMERICAN 34 ML/MIN (>=60); IRON BINDING CAPACITY 163 MCG/DL (250-450); IRON, SERUM 9 MCG/DL (35-150); PHOSPHORUS, SERUM 4.1 MG/DL (2.5-4.5); POTASSIUM, SERUM 4.8 MMOL/L (3.5-5.3); SODIUM, SERUM 140 MMOL/L (135-148)
[2017-03-07 05:37] LABS: BUN (BLOOD UREA NITROGEN) 41 MG/DL (6-23); FOLATE 14.3 NG/ML (>5.2); GLUCOSE, SERUM 108 MG/DL (60-99)
[2017-03-07 07:47] LABS: PROCALCITONIN 0.48 ng/mL (<0.5)
[2017-03-07 11:33] LABS: BASOPHILS 0 %; BASOPHILS ABSOLUTE 0.01 10/3/uL (0.0-0.16); EOSINOPHILS 0 %; EOSINOPHILS ABSOLUTE 0.01 10/3/uL (0.0-0.53); HEMOGLOBIN 7.5 g/dL (13.6-17.8); IMMATURE GRANULOCYTES 0.4 %; IMMATURE GRANULOCYTES ABSOLUTE 0.09 10/3/uL (0.0-0.11); LYMPHOCYTES 2.3 %; LYMPHOCYTES ABSOLUTE 0.49 10/3/uL (0.67-4.30); MANUAL DIFF NO %; MEAN CORPUS HGB CONC 31.3 g/dL (32.0-36.0); MEAN CORPUSCULAR VOLUME 86.3 fL (80-100); MEAN PLATELET VOLUME 9.9 fL (9.2-13.0); MONOCYTES 5.8 %; MONOCYTES ABSOLUTE 1.24 10/3/uL (0.21-1.20); NEUTROPHILS 91.5 %; NEUTROPHILS ABSOLUTE 19.63 10/3/uL (2.02-8.40); PLATELET COUNT 251 10/3/uL (150-400); RBC DISTRIBUTION WIDTH 16.1 % (12.0-16.0); RED CELL COUNT 2.78 10/6/uL (4.7-6.1); WHITE BLOOD CELLS 21.5 10/3/uL (4.5-10.5)
[2017-03-07 15:53] LABS: BAND NEUTROPHILS 2 %; LYMPHOCYTES 6 %; LYMPHOCYTES ABSOLUTE (CALC) 1.29 10/3/uL (0.67-4.30); MONOCYTES 2 %; MONOCYTES ABSOLUTE (CALC) 0.43 10/3/uL (0.21-1.20); NEUTROPHILS ABSOLUTE (CALC) 19.78 10/3/uL (2.02-8.40); PLATELET ESTIMATE ADQ (ADEQUATE); SEGMENTED NEUTROPHIL (0) 90 %; TOTAL NUCLEATED CELLS 100
[2017-03-07 15:54] LABS: HYPOCHROMIA 1+ (3-10/OIF) (0-2/OIF); OVALOCYTES 1+ (3-10/OIF) (0-2/OIF); SPHEROCYTES FEW (3-10/OIF)
[2017-03-07 17:44] LABS: DIFFERENTIAL ORDERED Y
[2017-03-08 05:00] LABS: HEMATOCRIT 23.8 % (40.0-51.0); HEMOGLOBIN 7.5 g/dL (13.6-17.8); MEAN CORPUS HGB CONC 31.5 g/dL (32.0-36.0); MEAN CORPUSCULAR HEMOGLOB 26.6 pg (26.0-34.0); MEAN CORPUSCULAR VOLUME 84.4 fL (80-100); MEAN PLATELET VOLUME 10.6 fL (9.2-13.0); PLATELET COUNT 252 10/3/uL (150-400); RED CELL COUNT 2.82 10/6/uL (4.7-6.1); WHITE BLOOD CELLS 24.1 10/3/uL (4.5-10.5)
[2017-03-08 05:02] LABS: MANUAL DIFF YES %
[2017-03-08 05:12] LABS: ALBUMIN 2.1 G/DL (3.5-5.0); CALCIUM, SERUM 8.3 MG/DL (8.5-10.4); CHLORIDE, SERUM 105 MMOL/L (96-112); CREATININE 2.47 MG/DL (0.70-1.30); GFR AFRICAN AMERICAN 35 ML/MIN (>=60); GFR NON AFRICAN AMERICAN 30 ML/MIN (>=60); GLUCOSE, SERUM 116 MG/DL (60-99); PHOSPHORUS, SERUM 4.3 MG/DL (2.5-4.5); POTASSIUM, SERUM 4.7 MMOL/L (3.5-5.3); SODIUM, SERUM 136 MMOL/L (135-148)
[2017-03-08 05:17] LABS: BUN (BLOOD UREA NITROGEN) 48 MG/DL (6-23); CO2 (CARBON DIOXIDE) 18 MMOL/L (24-34)
[2017-03-08 05:54] LABS: IMMATURE GRANS ABSOLUTE (CALC) 0.48 10/3/uL (0.0-0.11); LYMPHOCYTES 4 %; LYMPHOCYTES ABSOLUTE (CALC) 0.96 10/3/uL (0.67-4.30); METAMYELOCYTES 2 %; MONOCYTES 6 %; MONOCYTES ABSOLUTE (CALC) 1.45 10/3/uL (0.21-1.20); NEUTROPHILS ABSOLUTE (CALC) 21.21 10/3/uL (2.02-8.40); SEGMENTED NEUTROPHIL (0) 88 %; TOTAL NUCLEATED CELLS 100
[2017-03-08 05:55] LABS: ANISOCYTOSIS 1+ (5-10/OIF) (0-5/OIF); RBC MORPHOLOGY ABN (NORMAL)
[2017-03-08 16:13] LABS: T PROTEIN (ELECT)(NOT OR 6.1 G/DL (6.0-8.5)
[2017-03-09 08:21] LABS: HEMOGLOBIN 7.5 g/dL (13.6-17.8); MEAN CORPUS HGB CONC 32.6 g/dL (32.0-36.0); MEAN CORPUSCULAR HEMOGLOB 27.5 pg (26.0-34.0); MEAN CORPUSCULAR VOLUME 84.2 fL (80-100); MEAN PLATELET VOLUME 10.4 fL (9.2-13.0); PLATELET COUNT 257 10/3/uL (150-400); RBC DISTRIBUTION WIDTH 16.1 % (12.0-16.0); RED CELL COUNT 2.73 10/6/uL (4.7-6.1)
[2017-03-09 08:22] LABS: MANUAL DIFF YES %
[2017-03-09 08:36] LABS: ALBUMIN 2.3 G/DL (3.5-5.0); CALCIUM, SERUM 7.8 MG/DL (8.5-10.4); CHLORIDE, SERUM 99 MMOL/L (96-112); CO2 (CARBON DIOXIDE) 20 MMOL/L (24-34); CREATININE 2.57 MG/DL (0.70-1.30); GFR AFRICAN AMERICAN 33 ML/MIN (>=60); GFR NON AFRICAN AMERICAN 29 ML/MIN (>=60); GLUCOSE, SERUM 138 MG/DL (60-99); PHOSPHORUS, SERUM 4.5 MG/DL (2.5-4.5); POTASSIUM, SERUM 4.3 MMOL/L (3.5-5.3); SODIUM, SERUM 133 MMOL/L (135-148)
[2017-03-09 08:37] LABS: BUN (BLOOD UREA NITROGEN) 59 MG/DL (6-23)
[2017-03-09 09:07] LABS: ANISOCYTOSIS 1+ (5-10/OIF) (0-5/OIF); BAND NEUTROPHILS 5 %; LYMPHOCYTES 3 %; LYMPHOCYTES ABSOLUTE (CALC) 0.84 10/3/uL (0.67-4.30); MONOCYTES 3 %; MONOCYTES ABSOLUTE (CALC) 0.84 10/3/uL (0.21-1.20); NEUTROPHILS ABSOLUTE (CALC) 26.32 10/3/uL (2.02-8.40); PLATELET ESTIMATE ADQ (ADEQUATE); SEGMENTED NEUTROPHIL (0) 89 %; TOTAL NUCLEATED CELLS 100
[2017-03-10 06:25] LABS: HEMOGLOBIN 7.4 g/dL (13.6-17.8); MEAN CORPUS HGB CONC 32.2 g/dL (32.0-36.0); MEAN CORPUSCULAR HEMOGLOB 26.7 pg (26.0-34.0); MEAN PLATELET VOLUME 10.5 fL (9.2-13.0); PLATELET COUNT 256 10/3/uL (150-400); RBC DISTRIBUTION WIDTH 16.1 % (12.0-16.0); RED CELL COUNT 2.77 10/6/uL (4.7-6.1)
[2017-03-10 06:26] LABS: CALCIUM, SERUM 8.1 MG/DL (8.5-10.4); CHLORIDE, SERUM 99 MMOL/L (96-112); CO2 (CARBON DIOXIDE) 22 MMOL/L (24-34); CREATININE 2.88 MG/DL (0.70-1.30); GFR AFRICAN AMERICAN 29 ML/MIN (>=60); GFR NON AFRICAN AMERICAN 25 ML/MIN (>=60); GLUCOSE, SERUM 156 MG/DL (60-99); POTASSIUM, SERUM 3.8 MMOL/L (3.5-5.3); SODIUM, SERUM 134 MMOL/L (135-148)
[2017-03-10 06:27] LABS: BUN (BLOOD UREA NITROGEN) 65 MG/DL (6-23)
[2017-03-10 06:29] LABS: MANUAL DIFF YES %; WHITE BLOOD CELLS 26.7 10/3/uL (4.5-10.5)
[2017-03-10 07:51] LABS: BAND NEUTROPHILS 3 %; LYMPHOCYTES 5 %; LYMPHOCYTES ABSOLUTE (CALC) 1.34 10/3/uL (0.67-4.30); MONOCYTES 5 %; MONOCYTES ABSOLUTE (CALC) 1.34 10/3/uL (0.21-1.20); NEUTROPHILS ABSOLUTE (CALC) 24.03 10/3/uL (2.02-8.40); PLATELET ESTIMATE ADQ (ADEQUATE); SEGMENTED NEUTROPHIL (0) 87 %; TOTAL NUCLEATED CELLS 100
[2017-03-10 07:53] LABS: TOXIC GRANULATION SLT
[2017-03-10 07:54] LABS: SCHISTOCYTES OCC (0-2/OIF)
[2017-03-10 10:05] LABS: ALB RELATIVE % 37.6 % (60.0-89.0); ALBUMIN (ELECTRO) 2.29 GM/DL (3.2-5.5); ALPHA 1 (ELECTRO) 0.41 GM/DL (0.1-0.4); ALPHA 1 RELAT % (NOT ORD) 6.8 % (1.0-4.0); ALPHA 2 (ELECTRO) 1.15 GM/DL (0.5-1.10); ALPHA 2 RELAT % 18.8 % (4.5-26.0); BETA GLOBULIN (SPE) 0.88 GM/DL (0.60-1.30); BETA RELATIVE % 14.5 % (9.0-22.0); GAMMA GLOBULIN (SPE) 1.36 G/DL (0.70-1.60); GAMMA RELAT % 22.3 % (6.0-22.0)
[2017-03-11 05:17] LABS: BASOPHILS 0 %; BASOPHILS ABSOLUTE 0.01 10/3/uL (0.0-0.16); EOSINOPHILS 0 %; EOSINOPHILS ABSOLUTE 0.01 10/3/uL (0.0-0.53); HEMATOCRIT 18.9 % (40.0-51.0); HEMOGLOBIN 6.1 g/dL (13.6-17.8); IMMATURE GRANULOCYTES 0.4 %; IMMATURE GRANULOCYTES ABSOLUTE 0.08 10/3/uL (0.0-0.11); LYMPHOCYTES 2.4 %; MEAN CORPUS HGB CONC 32.3 g/dL (32.0-36.0); MEAN CORPUSCULAR HEMOGLOB 26.8 pg (26.0-34.0); MEAN CORPUSCULAR VOLUME 82.9 fL (80-100); MEAN PLATELET VOLUME 10.7 fL (9.2-13.0); MONOCYTES 6.9 %; MONOCYTES ABSOLUTE 1.45 10/3/uL (0.21-1.20); NEUTROPHILS 90.3 %; NEUTROPHILS ABSOLUTE 18.98 10/3/uL (2.02-8.40); PLATELET COUNT 253 10/3/uL (150-400); RBC DISTRIBUTION WIDTH 15.8 % (12.0-16.0); RED CELL COUNT 2.28 10/6/uL (4.7-6.1)
[2017-03-11 05:18] LABS: MANUAL DIFF NO %
[2017-03-11 05:33] LABS: CALCIUM, SERUM 7.6 MG/DL (8.5-10.4); CHLORIDE, SERUM 98 MMOL/L (96-112); CO2 (CARBON DIOXIDE) 24 MMOL/L (24-34); CREATININE 3.04 MG/DL (0.70-1.30); GFR AFRICAN AMERICAN 27 ML/MIN (>=60); GFR NON AFRICAN AMERICAN 23 ML/MIN (>=60); GLUCOSE, SERUM 166 MG/DL (60-99); POTASSIUM, SERUM 3.7 MMOL/L (3.5-5.3); SODIUM, SERUM 133 MMOL/L (135-148)
[2017-03-11 05:39] LABS: BUN (BLOOD UREA NITROGEN) 78 MG/DL (6-23)
[2017-03-11 14:34] LABS: CREATININE, URINE 43.7 MG/DL
[2017-03-12 06:34] LABS: BASOPHILS 0.1 %; BASOPHILS ABSOLUTE 0.01 10/3/uL (0.0-0.16); EOSINOPHILS 0.4 %; EOSINOPHILS ABSOLUTE 0.07 10/3/uL (0.0-0.53); IMMATURE GRANULOCYTES 0.5 %; LYMPHOCYTES 7.1 %; LYMPHOCYTES ABSOLUTE 1.34 10/3/uL (0.67-4.30); MEAN CORPUS HGB CONC 33.7 g/dL (32.0-36.0); MEAN CORPUSCULAR HEMOGLOB 26.5 pg (26.0-34.0); MEAN PLATELET VOLUME 10.2 fL (9.2-13.0); MONOCYTES 5.6 %; MONOCYTES ABSOLUTE 1.06 10/3/uL (0.21-1.20); NEUTROPHILS 86.3 %; NEUTROPHILS ABSOLUTE 16.26 10/3/uL (2.02-8.40); PLATELET COUNT 231 10/3/uL (150-400); RBC DISTRIBUTION WIDTH 16.7 % (12.0-16.0); RED CELL COUNT 2.49 10/6/uL (4.7-6.1); WHITE BLOOD CELLS 18.8 10/3/uL (4.5-10.5)
[2017-03-12 06:38] LABS: HEMATOCRIT 19.6 % (40.0-51.0); HEMOGLOBIN 6.6 g/dL (13.6-17.8); MEAN CORPUSCULAR VOLUME 78.7 fL (80-100)
[2017-03-12 06:39] LABS: MANUAL DIFF NO %
[2017-03-12 06:40] LABS: CALCIUM, SERUM 7.9 MG/DL (8.5-10.4); CHLORIDE, SERUM 98 MMOL/L (96-112); CO2 (CARBON DIOXIDE) 23 MMOL/L (24-34); CREATININE 3.38 MG/DL (0.70-1.30); GFR AFRICAN AMERICAN 24 ML/MIN (>=60); GFR NON AFRICAN AMERICAN 21 ML/MIN (>=60); PHOSPHORUS, SERUM 4.4 MG/DL (2.5-4.5); POTASSIUM, SERUM 3.4 MMOL/L (3.5-5.3); SODIUM, SERUM 133 MMOL/L (135-148); VANCOMYCIN TROUGH 15.7 MCG/ML (10.0-20.0)
[2017-03-12 06:41] LABS: BUN (BLOOD UREA NITROGEN) 82 MG/DL (6-23); GLUCOSE, SERUM 123 MG/DL (60-99)
[2017-03-12 07:24] LABS: PROCALCITONIN 1.06 ng/mL (<0.5)
[2017-03-12 10:10] LABS: HEMATOCRIT 19.3 % (40.0-51.0); HEMOGLOBIN 6.6 g/dL (13.6-17.8)
[2017-03-12 15:57] LABS: HEMOGLOBIN 7.8 g/dL (13.6-17.8)
[2017-03-12 15:58] LABS: HEMATOCRIT 23.9 % (40.0-51.0)
[2017-03-12 16:44] LABS: INTERNATIONAL NORMAL RATI 1.4 UNITS (-); PROTIME (NOT ORD) 16.9 SEC (12.0-14.5)
[2017-03-12 21:53] LABS: HEMATOCRIT 21.1 % (40.0-51.0)
[2017-03-13 04:49] LABS: BASOPHILS 0 %; BASOPHILS ABSOLUTE 0.01 10/3/uL (0.0-0.16); EOSINOPHILS 0.7 %; EOSINOPHILS ABSOLUTE 0.14 10/3/uL (0.0-0.53); HEMATOCRIT 21.8 % (40.0-51.0); HEMOGLOBIN 7.2 g/dL (13.6-17.8); IMMATURE GRANULOCYTES 0.5 %; LYMPHOCYTES 7.1 %; MANUAL DIFF NO %; MEAN CORPUSCULAR HEMOGLOB 26.7 pg (26.0-34.0); MEAN CORPUSCULAR VOLUME 80.7 fL (80-100); MEAN PLATELET VOLUME 10.7 fL (9.2-13.0); MONOCYTES 4.6 %; MONOCYTES ABSOLUTE 0.97 10/3/uL (0.21-1.20); NEUTROPHILS 87.1 %; NEUTROPHILS ABSOLUTE 18.37 10/3/uL (2.02-8.40); PLATELET COUNT 242 10/3/uL (150-400); RBC DISTRIBUTION WIDTH 16.2 % (12.0-16.0); WHITE BLOOD CELLS 21.1 10/3/uL (4.5-10.5)
[2017-03-13 05:18] LABS: ALBUMIN 2.4 G/DL (3.5-5.0); CALCIUM, SERUM 8.3 MG/DL (8.5-10.4); CHLORIDE, SERUM 96 MMOL/L (96-112); CO2 (CARBON DIOXIDE) 21 MMOL/L (24-34); CREATININE 3.48 MG/DL (0.70-1.30); GFR AFRICAN AMERICAN 23 ML/MIN (>=60); GFR NON AFRICAN AMERICAN 20 ML/MIN (>=60); GLUCOSE, SERUM 132 MG/DL (60-99); PHOSPHORUS, SERUM 4.3 MG/DL (2.5-4.5); POTASSIUM, SERUM 3.2 MMOL/L (3.5-5.3); SODIUM, SERUM 133 MMOL/L (135-148)
[2017-03-13 05:19] LABS: BUN (BLOOD UREA NITROGEN) 87 MG/DL (6-23)
[2017-03-14 05:16] LABS: MEAN CORPUS HGB CONC 33.7 g/dL (32.0-36.0); MEAN CORPUSCULAR HEMOGLOB 26.9 pg (26.0-34.0); MEAN PLATELET VOLUME 10.6 fL (9.2-13.0); PLATELET COUNT 241 10/3/uL (150-400); RBC DISTRIBUTION WIDTH 16.5 % (12.0-16.0)
[2017-03-14 05:20] LABS: HEMATOCRIT 20.8 % (40.0-51.0); WHITE BLOOD CELLS 26.6 10/3/uL (4.5-10.5)
[2017-03-14 05:21] LABS: MANUAL DIFF YES %
[2017-03-14 05:36] LABS: ALBUMIN 2.4 G/DL (3.5-5.0); CALCIUM, SERUM 7.9 MG/DL (8.5-10.4); CHLORIDE, SERUM 100 MMOL/L (96-112); CO2 (CARBON DIOXIDE) 24 MMOL/L (24-34); GFR AFRICAN AMERICAN 28 ML/MIN (>=60); GFR NON AFRICAN AMERICAN 24 ML/MIN (>=60); GLUCOSE, SERUM 117 MG/DL (60-99); PHOSPHORUS, SERUM 3.6 MG/DL (2.5-4.5); POTASSIUM, SERUM 3.3 MMOL/L (3.5-5.3); SODIUM, SERUM 136 MMOL/L (135-148)
[2017-03-14 05:37] LABS: BUN (BLOOD UREA NITROGEN) 63 MG/DL (6-23); CREATININE 2.95 MG/DL (0.70-1.30)
[2017-03-14 06:39] LABS: BAND NEUTROPHILS 11 %; LYMPHOCYTES 5 %; LYMPHOCYTES ABSOLUTE (CALC) 1.33 10/3/uL (0.67-4.30); MONOCYTES 6 %; NEUTROPHILS ABSOLUTE (CALC) 23.67 10/3/uL (2.02-8.40); SEGMENTED NEUTROPHIL (0) 78 %; TOTAL NUCLEATED CELLS 100
[2017-03-14 06:40] LABS: PLATELET ESTIMATE ADQ (ADEQUATE); POLYCHROMASIA 1+ (2-5/OIF) (0-1/OIF); TOXIC GRANULATION 1+
[2017-03-14 10:18] LABS: HEPATITIS B SURFACE ANTIGEN NON-REACTIVE (NON-REACT); HEPATITIS C ANTIBODY NON-REACTIVE (NON-REACT)
[2017-03-14 10:19] LABS: HEPATITIS B CORE AB IGM NON-REACTIVE (NON-REAC)
[2017-03-14 10:20] LABS: HIV COMBO NON-REACTIVE (NON REAC)
[2017-03-14 10:21] LABS: HEP A ANTIBODY IGM NON-REACTIVE (NON-REACT)
[2017-03-15 05:03] LABS: MEAN CORPUS HGB CONC 32.5 g/dL (32.0-36.0); MEAN CORPUSCULAR HEMOGLOB 26.6 pg (26.0-34.0); MEAN CORPUSCULAR VOLUME 81.9 fL (80-100); MEAN PLATELET VOLUME 11.1 fL (9.2-13.0); PLATELET COUNT 276 10/3/uL (150-400); RBC DISTRIBUTION WIDTH 16.3 % (12.0-16.0)
[2017-03-15 05:10] LABS: HEMATOCRIT 27.1 % (40.0-51.0); HEMOGLOBIN 8.8 g/dL (13.6-17.8); MANUAL DIFF YES %; RED CELL COUNT 3.31 10/6/uL (4.7-6.1); WHITE BLOOD CELLS 25.8 10/3/uL (4.5-10.5)
[2017-03-15 05:17] LABS: ALBUMIN 2.4 G/DL (3.5-5.0); CALCIUM, SERUM 8.3 MG/DL (8.5-10.4); CHLORIDE, SERUM 102 MMOL/L (96-112); CO2 (CARBON DIOXIDE) 24 MMOL/L (24-34); CREATININE 2.62 MG/DL (0.70-1.30); GFR AFRICAN AMERICAN 33 ML/MIN (>=60); GFR NON AFRICAN AMERICAN 28 ML/MIN (>=60); GLUCOSE, SERUM 98 MG/DL (60-99); POTASSIUM, SERUM 3.4 MMOL/L (3.5-5.3); SODIUM, SERUM 140 MMOL/L (135-148)
[2017-03-15 05:21] LABS: BUN (BLOOD UREA NITROGEN) 43 MG/DL (6-23)
[2017-03-15 05:58] LABS: PROCALCITONIN 1.77 ng/mL (<0.5)
[2017-03-15 06:28] LABS: BAND NEUTROPHILS 10 %; EOSINOPHILS 2 %; EOSINOPHILS ABSOLUTE (CALC) 0.52 10/3/uL (0.0-0.53); LYMPHOCYTES 3 %; LYMPHOCYTES ABSOLUTE (CALC) 0.77 10/3/uL (0.67-4.30); MONOCYTES 3 %; MONOCYTES ABSOLUTE (CALC) 0.77 10/3/uL (0.21-1.20); NEUTROPHILS ABSOLUTE (CALC) 23.74 10/3/uL (2.02-8.40); PLATELET ESTIMATE ADQ (ADEQUATE); POLYCHROMASIA 1+ (2-5/OIF) (0-1/OIF); SEGMENTED NEUTROPHIL (0) 82 %; TOTAL NUCLEATED CELLS 100
[2017-03-15 06:29] LABS: OVALOCYTES 1+ (3-10/OIF) (0-2/OIF)
[2017-03-15 06:30] LABS: TOXIC GRANULATION SLT
[2017-03-16 06:12] LABS: BASOPHILS 0.1 %; BASOPHILS ABSOLUTE 0.02 10/3/uL (0.0-0.16); EOSINOPHILS 1.3 %; EOSINOPHILS ABSOLUTE 0.29 10/3/uL (0.0-0.53); HEMATOCRIT 26.2 % (40.0-51.0); HEMOGLOBIN 8.4 g/dL (13.6-17.8); IMMATURE GRANULOCYTES 1.6 %; IMMATURE GRANULOCYTES ABSOLUTE 0.37 10/3/uL (0.0-0.11); LYMPHOCYTES 5.5 %; LYMPHOCYTES ABSOLUTE 1.25 10/3/uL (0.67-4.30); MEAN CORPUS HGB CONC 32.1 g/dL (32.0-36.0); MEAN CORPUSCULAR HEMOGLOB 26.8 pg (26.0-34.0); MEAN CORPUSCULAR VOLUME 83.7 fL (80-100); MEAN PLATELET VOLUME 10.5 fL (9.2-13.0); MONOCYTES 5.4 %; MONOCYTES ABSOLUTE 1.23 10/3/uL (0.21-1.20); NEUTROPHILS 86.1 %; PLATELET COUNT 279 10/3/uL (150-400); RBC DISTRIBUTION WIDTH 16.8 % (12.0-16.0); RED CELL COUNT 3.13 10/6/uL (4.7-6.1); WHITE BLOOD CELLS 22.7 10/3/uL (4.5-10.5)
[2017-03-16 06:13] LABS: MANUAL DIFF NO %
[2017-03-16 06:24] LABS: ALBUMIN 2.4 G/DL (3.5-5.0); BUN (BLOOD UREA NITROGEN) 34 MG/DL (6-23); CHLORIDE, SERUM 104 MMOL/L (96-112); CO2 (CARBON DIOXIDE) 25 MMOL/L (24-34); CREATININE 2.76 MG/DL (0.70-1.30); GFR AFRICAN AMERICAN 31 ML/MIN (>=60); GFR NON AFRICAN AMERICAN 26 ML/MIN (>=60); GLUCOSE, SERUM 74 MG/DL (60-99); PHOSPHORUS, SERUM 2.9 MG/DL (2.5-4.5); POTASSIUM, SERUM 3.3 MMOL/L (3.5-5.3); SODIUM, SERUM 140 MMOL/L (135-148)
[2017-03-17 05:01] LABS: HEMATOCRIT 25.6 % (40.0-51.0); HEMOGLOBIN 8.3 g/dL (13.6-17.8); MANUAL DIFF YES %; MEAN CORPUS HGB CONC 32.4 g/dL (32.0-36.0); MEAN CORPUSCULAR HEMOGLOB 27.5 pg (26.0-34.0); MEAN CORPUSCULAR VOLUME 84.8 fL (80-100); MEAN PLATELET VOLUME 10.4 fL (9.2-13.0); PLATELET COUNT 309 10/3/uL (150-400); RED CELL COUNT 3.02 10/6/uL (4.7-6.1); WHITE BLOOD CELLS 23.1 10/3/uL (4.5-10.5)
[2017-03-17 05:14] LABS: ALBUMIN 2.2 G/DL (3.5-5.0); BUN (BLOOD UREA NITROGEN) 34 MG/DL (6-23); CALCIUM, SERUM 8.1 MG/DL (8.5-10.4); CHLORIDE, SERUM 105 MMOL/L (96-112); CO2 (CARBON DIOXIDE) 23 MMOL/L (24-34); CREATININE 3.47 MG/DL (0.70-1.30); GFR AFRICAN AMERICAN 23 ML/MIN (>=60); GFR NON AFRICAN AMERICAN 20 ML/MIN (>=60); GLUCOSE, SERUM 85 MG/DL (60-99); PHOSPHORUS, SERUM 3.3 MG/DL (2.5-4.5); POTASSIUM, SERUM 3.5 MMOL/L (3.5-5.3); SODIUM, SERUM 140 MMOL/L (135-148)
[2017-03-17 06:52] LABS: ANISOCYTOSIS 1+ (5-10/OIF) (0-5/OIF); EOSINOPHILS 2 %; EOSINOPHILS ABSOLUTE (CALC) 0.46 10/3/uL (0.0-0.53); LYMPHOCYTES 4 %; LYMPHOCYTES ABSOLUTE (CALC) 0.92 10/3/uL (0.67-4.30); MONOCYTES 6 %; MONOCYTES ABSOLUTE (CALC) 1.39 10/3/uL (0.21-1.20); NEUTROPHILS ABSOLUTE (CALC) 20.33 10/3/uL (2.02-8.40); SEGMENTED NEUTROPHIL (0) 88 %; TOTAL NUCLEATED CELLS 100
[2017-03-17 06:53] LABS: PLATELET ESTIMATE ADQ (ADEQUATE)
[2017-03-18 04:52] LABS: BASOPHILS 0.2 %; BASOPHILS ABSOLUTE 0.03 10/3/uL (0.0-0.16); EOSINOPHILS 1.8 %; EOSINOPHILS ABSOLUTE 0.36 10/3/uL (0.0-0.53); HEMATOCRIT 27.4 % (40.0-51.0); HEMOGLOBIN 8.6 g/dL (13.6-17.8); LYMPHOCYTES 5.6 %; LYMPHOCYTES ABSOLUTE 1.11 10/3/uL (0.67-4.30); MEAN CORPUS HGB CONC 31.4 g/dL (32.0-36.0); MEAN CORPUSCULAR VOLUME 85.9 fL (80-100); MEAN PLATELET VOLUME 10.1 fL (9.2-13.0); MONOCYTES 5.8 %; MONOCYTES ABSOLUTE 1.16 10/3/uL (0.21-1.20); NEUTROPHILS 85.6 %; NEUTROPHILS ABSOLUTE 17.01 10/3/uL (2.02-8.40); PLATELET COUNT 316 10/3/uL (150-400); RBC DISTRIBUTION WIDTH 16.8 % (12.0-16.0); RED CELL COUNT 3.19 10/6/uL (4.7-6.1); WHITE BLOOD CELLS 19.9 10/3/uL (4.5-10.5)
[2017-03-18 04:55] LABS: MANUAL DIFF NO %
[2017-03-18 04:56] LABS: CALCIUM, SERUM 7.8 MG/DL (8.5-10.4); CHLORIDE, SERUM 103 MMOL/L (96-112); CO2 (CARBON DIOXIDE) 26 MMOL/L (24-34); CREATININE 3.45 MG/DL (0.70-1.30); GFR AFRICAN AMERICAN 23 ML/MIN (>=60); GFR NON AFRICAN AMERICAN 20 ML/MIN (>=60); POTASSIUM, SERUM 3.6 MMOL/L (3.5-5.3); SODIUM, SERUM 140 MMOL/L (135-148)
[2017-03-18 04:59] LABS: BUN (BLOOD UREA NITROGEN) 27 MG/DL (6-23); GLUCOSE, SERUM 141 MG/DL (60-99)
[2017-03-18 06:43] LABS: PROCALCITONIN 1.02 ng/mL (<0.5)
[2017-03-19 07:17] LABS: BASOPHILS 0.1 %; BASOPHILS ABSOLUTE 0.02 10/3/uL (0.0-0.16); EOSINOPHILS 1.9 %; EOSINOPHILS ABSOLUTE 0.37 10/3/uL (0.0-0.53); HEMATOCRIT 25.6 % (40.0-51.0); HEMOGLOBIN 8.3 g/dL (13.6-17.8); IMMATURE GRANULOCYTES 0.7 %; IMMATURE GRANULOCYTES ABSOLUTE 0.13 10/3/uL (0.0-0.11); LYMPHOCYTES 5.2 %; LYMPHOCYTES ABSOLUTE 1.02 10/3/uL (0.67-4.30); MEAN CORPUS HGB CONC 32.4 g/dL (32.0-36.0); MEAN CORPUSCULAR HEMOGLOB 27.6 pg (26.0-34.0); MEAN PLATELET VOLUME 9.7 fL (9.2-13.0); MONOCYTES 5.6 %; MONOCYTES ABSOLUTE 1.09 10/3/uL (0.21-1.20); NEUTROPHILS 86.5 %; NEUTROPHILS ABSOLUTE 16.87 10/3/uL (2.02-8.40); PLATELET COUNT 312 10/3/uL (150-400); RBC DISTRIBUTION WIDTH 16.8 % (12.0-16.0); RED CELL COUNT 3.01 10/6/uL (4.7-6.1); WHITE BLOOD CELLS 19.5 10/3/uL (4.5-10.5)
[2017-03-19 07:23] LABS: MANUAL DIFF NO %
[2017-03-19 07:28] LABS: ALBUMIN 2.1 G/DL (3.5-5.0); CALCIUM, SERUM 7.7 MG/DL (8.5-10.4); CHLORIDE, SERUM 102 MMOL/L (96-112); CO2 (CARBON DIOXIDE) 25 MMOL/L (24-34); GFR AFRICAN AMERICAN 17 ML/MIN (>=60); GFR NON AFRICAN AMERICAN 14 ML/MIN (>=60); GLUCOSE, SERUM 139 MG/DL (60-99); PHOSPHORUS, SERUM 3.5 MG/DL (2.5-4.5); POTASSIUM, SERUM 3.6 MMOL/L (3.5-5.3); SODIUM, SERUM 139 MMOL/L (135-148)
[2017-03-19 07:29] LABS: BUN (BLOOD UREA NITROGEN) 32 MG/DL (6-23); CREATININE 4.57 MG/DL (0.70-1.30)
[2017-03-20 05:27] LABS: BASOPHILS 0.1 %; BASOPHILS ABSOLUTE 0.02 10/3/uL (0.0-0.16); EOSINOPHILS 2.1 %; EOSINOPHILS ABSOLUTE 0.33 10/3/uL (0.0-0.53); HEMOGLOBIN 8.2 g/dL (13.6-17.8); IMMATURE GRANULOCYTES 0.4 %; IMMATURE GRANULOCYTES ABSOLUTE 0.06 10/3/uL (0.0-0.11); LYMPHOCYTES 7.1 %; LYMPHOCYTES ABSOLUTE 1.12 10/3/uL (0.67-4.30); MANUAL DIFF NO %; MEAN CORPUS HGB CONC 31.5 g/dL (32.0-36.0); MEAN CORPUSCULAR HEMOGLOB 27.1 pg (26.0-34.0); MEAN CORPUSCULAR VOLUME 85.8 fL (80-100); MEAN PLATELET VOLUME 9.3 fL (9.2-13.0); MONOCYTES 6.1 %; MONOCYTES ABSOLUTE 0.95 10/3/uL (0.21-1.20); NEUTROPHILS 84.2 %; NEUTROPHILS ABSOLUTE 13.19 10/3/uL (2.02-8.40); PLATELET COUNT 280 10/3/uL (150-400); RBC DISTRIBUTION WIDTH 16.6 % (12.0-16.0); RED CELL COUNT 3.03 10/6/uL (4.7-6.1); WHITE BLOOD CELLS 15.7 10/3/uL (4.5-10.5)
[2017-03-20 05:41] LABS: CALCIUM, SERUM 7.7 MG/DL (8.5-10.4); CHLORIDE, SERUM 105 MMOL/L (96-112); CO2 (CARBON DIOXIDE) 26 MMOL/L (24-34); GFR AFRICAN AMERICAN 19 ML/MIN (>=60); GFR NON AFRICAN AMERICAN 16 ML/MIN (>=60); PHOSPHORUS, SERUM 3.6 MG/DL (2.5-4.5); POTASSIUM, SERUM 3.9 MMOL/L (3.5-5.3); SODIUM, SERUM 139 MMOL/L (135-148)
[2017-03-20 05:42] LABS: BUN (BLOOD UREA NITROGEN) 24 MG/DL (6-23); GLUCOSE, SERUM 174 MG/DL (60-99)
[2017-03-21 05:10] LABS: BASOPHILS 0.1 %; BASOPHILS ABSOLUTE 0.02 10/3/uL (0.0-0.16); EOSINOPHILS 2.3 %; EOSINOPHILS ABSOLUTE 0.31 10/3/uL (0.0-0.53); HEMATOCRIT 24.9 % (40.0-51.0); HEMOGLOBIN 7.7 g/dL (13.6-17.8); IMMATURE GRANULOCYTES 0.4 %; IMMATURE GRANULOCYTES ABSOLUTE 0.05 10/3/uL (0.0-0.11); LYMPHOCYTES 7.8 %; LYMPHOCYTES ABSOLUTE 1.04 10/3/uL (0.67-4.30); MEAN CORPUS HGB CONC 30.9 g/dL (32.0-36.0); MEAN CORPUSCULAR HEMOGLOB 26.6 pg (26.0-34.0); MEAN CORPUSCULAR VOLUME 85.9 fL (80-100); MEAN PLATELET VOLUME 9.5 fL (9.2-13.0); MONOCYTES 6.1 %; MONOCYTES ABSOLUTE 0.81 10/3/uL (0.21-1.20); NEUTROPHILS 83.3 %; NEUTROPHILS ABSOLUTE 11.12 10/3/uL (2.02-8.40); PLATELET COUNT 299 10/3/uL (150-400); RBC DISTRIBUTION WIDTH 16.3 % (12.0-16.0); WHITE BLOOD CELLS 13.4 10/3/uL (4.5-10.5)
[2017-03-21 05:12] LABS: MANUAL DIFF NO %
[2017-03-21 05:48] LABS: BUN (BLOOD UREA NITROGEN) 27 MG/DL (6-23); CALCIUM, SERUM 7.9 MG/DL (8.5-10.4); CHLORIDE, SERUM 105 MMOL/L (96-112); CO2 (CARBON DIOXIDE) 24 MMOL/L (24-34); CREATININE 4.34 MG/DL (0.70-1.30); GFR AFRICAN AMERICAN 18 ML/MIN (>=60); GFR NON AFRICAN AMERICAN 15 ML/MIN (>=60); PHOSPHORUS, SERUM 4.1 MG/DL (2.5-4.5); POTASSIUM, SERUM 3.8 MMOL/L (3.5-5.3); SODIUM, SERUM 140 MMOL/L (135-148)
[2017-03-21 05:51] LABS: GLUCOSE, SERUM 99 MG/DL (60-99)
[2017-03-23 06:55] LABS: BASOPHILS 0.3 %; BASOPHILS ABSOLUTE 0.03 10/3/uL (0.0-0.16); BUN (BLOOD UREA NITROGEN) 26 MG/DL (6-23); CHLORIDE, SERUM 105 MMOL/L (96-112); CO2 (CARBON DIOXIDE) 26 MMOL/L (24-34); CREATININE 3.61 MG/DL (0.70-1.30); EOSINOPHILS 2.2 %; EOSINOPHILS ABSOLUTE 0.22 10/3/uL (0.0-0.53); GFR AFRICAN AMERICAN 22 ML/MIN (>=60); GFR NON AFRICAN AMERICAN 19 ML/MIN (>=60); GLUCOSE, SERUM 119 MG/DL (60-99); HEMATOCRIT 25.2 % (40.0-51.0); HEMOGLOBIN 7.9 g/dL (13.6-17.8); IMMATURE GRANULOCYTES 0.4 %; IMMATURE GRANULOCYTES ABSOLUTE 0.04 10/3/uL (0.0-0.11); LYMPHOCYTES 10.3 %; LYMPHOCYTES ABSOLUTE 1.02 10/3/uL (0.67-4.30); MEAN CORPUS HGB CONC 31.3 g/dL (32.0-36.0); MEAN CORPUSCULAR HEMOGLOB 26.8 pg (26.0-34.0); MEAN CORPUSCULAR VOLUME 85.4 fL (80-100); MEAN PLATELET VOLUME 9.2 fL (9.2-13.0); MONOCYTES 5.9 %; MONOCYTES ABSOLUTE 0.58 10/3/uL (0.21-1.20); NEUTROPHILS 80.9 %; PHOSPHORUS, SERUM 3.8 MG/DL (2.5-4.5); PLATELET COUNT 264 10/3/uL (150-400); POTASSIUM, SERUM 3.9 MMOL/L (3.5-5.3); RBC DISTRIBUTION WIDTH 15.8 % (12.0-16.0); RED CELL COUNT 2.95 10/6/uL (4.7-6.1); SODIUM, SERUM 140 MMOL/L (135-148); WHITE BLOOD CELLS 9.9 10/3/uL (4.5-10.5)
[2017-03-23 07:14] LABS: MANUAL DIFF NO %
[2017-03-23 08:05] LABS: PLATELET ESTIMATE ADQ (ADEQUATE); RBC MORPHOLOGY NORM (NORMAL)
[2017-03-23 17:00] LABS: IMMUNOGLOBULIN A 278 MG/DL (70-420); IMMUNOGLOBULIN G 1270 MG/DL (673-1464); IMMUNOGLOBULIN M 89 MG/DL (30-270)
[2017-03-24 04:55] LABS: BASOPHILS 0.2 %; BASOPHILS ABSOLUTE 0.02 10/3/uL (0.0-0.16); EOSINOPHILS 2.9 %; HEMATOCRIT 24.8 % (40.0-51.0); HEMOGLOBIN 7.8 g/dL (13.6-17.8); IMMATURE GRANULOCYTES 0.3 %; IMMATURE GRANULOCYTES ABSOLUTE 0.03 10/3/uL (0.0-0.11); LYMPHOCYTES 11.6 %; LYMPHOCYTES ABSOLUTE 1.22 10/3/uL (0.67-4.30); MEAN CORPUS HGB CONC 31.5 g/dL (32.0-36.0); MEAN CORPUSCULAR HEMOGLOB 26.6 pg (26.0-34.0); MEAN CORPUSCULAR VOLUME 84.6 fL (80-100); MEAN PLATELET VOLUME 9.3 fL (9.2-13.0); MONOCYTES 6.3 %; MONOCYTES ABSOLUTE 0.66 10/3/uL (0.21-1.20); NEUTROPHILS 78.7 %; NEUTROPHILS ABSOLUTE 8.26 10/3/uL (2.02-8.40); PLATELET COUNT 267 10/3/uL (150-400); RBC DISTRIBUTION WIDTH 15.8 % (12.0-16.0); RED CELL COUNT 2.93 10/6/uL (4.7-6.1); WHITE BLOOD CELLS 10.5 10/3/uL (4.5-10.5)
[2017-03-24 05:10] LABS: ALBUMIN 2.1 G/DL (3.5-5.0); BUN (BLOOD UREA NITROGEN) 27 MG/DL (6-23); CALCIUM, SERUM 8.1 MG/DL (8.5-10.4); CHLORIDE, SERUM 105 MMOL/L (96-112); CO2 (CARBON DIOXIDE) 25 MMOL/L (24-34); CREATININE 3.66 MG/DL (0.70-1.30); GFR AFRICAN AMERICAN 22 ML/MIN (>=60); GFR NON AFRICAN AMERICAN 19 ML/MIN (>=60); GLUCOSE, SERUM 117 MG/DL (60-99); PHOSPHORUS, SERUM 3.6 MG/DL (2.5-4.5); POTASSIUM, SERUM 3.9 MMOL/L (3.5-5.3); SODIUM, SERUM 139 MMOL/L (135-148)
[2017-03-24 05:22] LABS: MANUAL DIFF NO %
[2017-03-25 17:06] LABS: KAPPA FLC 16.8 mg/dL (0.33-1.94); KAPPA LAMBDA FLC RATIO 1.74 (0.26-1.65); LAMBDA FLC 9.64 mg/dL (0.57-2.63)
[2017-03-26 05:01] LABS: BASOPHILS 0.3 %; BASOPHILS ABSOLUTE 0.03 10/3/uL (0.0-0.16); EOSINOPHILS 4.2 %; HEMATOCRIT 25.8 % (40.0-51.0); HEMOGLOBIN 8.1 g/dL (13.6-17.8); IMMATURE GRANULOCYTES 0.3 %; IMMATURE GRANULOCYTES ABSOLUTE 0.03 10/3/uL (0.0-0.11); LYMPHOCYTES 12.3 %; LYMPHOCYTES ABSOLUTE 1.18 10/3/uL (0.67-4.30); MEAN CORPUS HGB CONC 31.4 g/dL (32.0-36.0); MEAN CORPUSCULAR HEMOGLOB 26.7 pg (26.0-34.0); MEAN CORPUSCULAR VOLUME 85.1 fL (80-100); MEAN PLATELET VOLUME 9.5 fL (9.2-13.0); MONOCYTES ABSOLUTE 0.48 10/3/uL (0.21-1.20); NEUTROPHILS 77.9 %; NEUTROPHILS ABSOLUTE 7.49 10/3/uL (2.02-8.40); PLATELET COUNT 257 10/3/uL (150-400); RBC DISTRIBUTION WIDTH 15.8 % (12.0-16.0); RED CELL COUNT 3.03 10/6/uL (4.7-6.1); WHITE BLOOD CELLS 9.6 10/3/uL (4.5-10.5)
[2017-03-26 05:04] LABS: MANUAL DIFF NO %
[2017-03-26 05:08] LABS: ALBUMIN 2.3 G/DL (3.5-5.0); BUN (BLOOD UREA NITROGEN) 28 MG/DL (6-23); CALCIUM, SERUM 8.6 MG/DL (8.5-10.4); CHLORIDE, SERUM 104 MMOL/L (96-112); CO2 (CARBON DIOXIDE) 27 MMOL/L (24-34); PHOSPHORUS, SERUM 3.2 MG/DL (2.5-4.5); POTASSIUM, SERUM 4.1 MMOL/L (3.5-5.3); SODIUM, SERUM 139 MMOL/L (135-148)
[2017-03-26 05:20] LABS: CREATININE 3.11 MG/DL (0.70-1.30); GFR AFRICAN AMERICAN 26 ML/MIN (>=60); GFR NON AFRICAN AMERICAN 23 ML/MIN (>=60); GLUCOSE, SERUM 201 MG/DL (60-99)
[2017-03-28 08:08] LABS: BASOPHILS 0.5 %; BASOPHILS ABSOLUTE 0.04 10/3/uL (0.0-0.16); EOSINOPHILS 5.4 %; EOSINOPHILS ABSOLUTE 0.41 10/3/uL (0.0-0.53); HEMATOCRIT 25.4 % (40.0-51.0); HEMOGLOBIN 8.1 g/dL (13.6-17.8); IMMATURE GRANULOCYTES 0.1 %; IMMATURE GRANULOCYTES ABSOLUTE 0.01 10/3/uL (0.0-0.11); LYMPHOCYTES 11.3 %; LYMPHOCYTES ABSOLUTE 0.85 10/3/uL (0.67-4.30); MANUAL DIFF NO %; MEAN CORPUS HGB CONC 31.9 g/dL (32.0-36.0); MEAN CORPUSCULAR HEMOGLOB 26.7 pg (26.0-34.0); MEAN CORPUSCULAR VOLUME 83.8 fL (80-100); MEAN PLATELET VOLUME 9.5 fL (9.2-13.0); MONOCYTES ABSOLUTE 0.45 10/3/uL (0.21-1.20); NEUTROPHILS 76.7 %; NEUTROPHILS ABSOLUTE 5.77 10/3/uL (2.02-8.40); PLATELET COUNT 250 10/3/uL (150-400); RBC DISTRIBUTION WIDTH 15.8 % (12.0-16.0); RED CELL COUNT 3.03 10/6/uL (4.7-6.1); WHITE BLOOD CELLS 7.5 10/3/uL (4.5-10.5)
[2017-03-28 08:27] LABS: ALBUMIN 2.4 G/DL (3.5-5.0); BUN (BLOOD UREA NITROGEN) 29 MG/DL (6-23); CO2 (CARBON DIOXIDE) 27 MMOL/L (24-34); CREATININE 3.02 MG/DL (0.70-1.30); GFR AFRICAN AMERICAN 27 ML/MIN (>=60); GFR NON AFRICAN AMERICAN 24 ML/MIN (>=60)
[2017-03-28 08:39] LABS: CALCIUM, SERUM 8.7 MG/DL (8.5-10.4); CHLORIDE, SERUM 104 MMOL/L (96-112); PHOSPHORUS, SERUM 3.1 MG/DL (2.5-4.5); POTASSIUM, SERUM 3.6 MMOL/L (3.5-5.3); SODIUM, SERUM 141 MMOL/L (135-148)
[2017-03-28 08:42] LABS: GLUCOSE, SERUM 107 MG/DL (60-99)
[2017-03-29 04:48] LABS: BASOPHILS 0.4 %; BASOPHILS ABSOLUTE 0.03 10/3/uL (0.0-0.16); EOSINOPHILS 6.3 %; EOSINOPHILS ABSOLUTE 0.46 10/3/uL (0.0-0.53); HEMATOCRIT 26.6 % (40.0-51.0); HEMOGLOBIN 8.1 g/dL (13.6-17.8); IMMATURE GRANULOCYTES 0.3 %; IMMATURE GRANULOCYTES ABSOLUTE 0.02 10/3/uL (0.0-0.11); LYMPHOCYTES ABSOLUTE 1.18 10/3/uL (0.67-4.30); MEAN CORPUS HGB CONC 30.5 g/dL (32.0-36.0); MEAN CORPUSCULAR HEMOGLOB 26.1 pg (26.0-34.0); MEAN CORPUSCULAR VOLUME 85.8 fL (80-100); MEAN PLATELET VOLUME 9.8 fL (9.2-13.0); MONOCYTES 6.8 %; NEUTROPHILS 70.2 %; NEUTROPHILS ABSOLUTE 5.17 10/3/uL (2.02-8.40); PLATELET COUNT 250 10/3/uL (150-400); WHITE BLOOD CELLS 7.4 10/3/uL (4.5-10.5)
[2017-03-29 04:54] LABS: MANUAL DIFF NO %
[2017-03-29 04:59] LABS: ALBUMIN 2.6 G/DL (3.5-5.0); BUN (BLOOD UREA NITROGEN) 23 MG/DL (6-23); CALCIUM, SERUM 8.6 MG/DL (8.5-10.4); CHLORIDE, SERUM 105 MMOL/L (96-112); CO2 (CARBON DIOXIDE) 27 MMOL/L (24-34); CREATININE 2.98 MG/DL (0.70-1.30); GFR AFRICAN AMERICAN 28 ML/MIN (>=60); GFR NON AFRICAN AMERICAN 24 ML/MIN (>=60); GLUCOSE, SERUM 144 MG/DL (60-99); PHOSPHORUS, SERUM 2.9 MG/DL (2.5-4.5); POTASSIUM, SERUM 3.7 MMOL/L (3.5-5.3); SODIUM, SERUM 141 MMOL/L (135-148)
[2017-03-30 08:23] LABS: BASOPHILS 0.4 %; BASOPHILS ABSOLUTE 0.03 10/3/uL (0.0-0.16); EOSINOPHILS 6.9 %; EOSINOPHILS ABSOLUTE 0.52 10/3/uL (0.0-0.53); HEMATOCRIT 26.4 % (40.0-51.0); HEMOGLOBIN 8.2 g/dL (13.6-17.8); IMMATURE GRANULOCYTES 0.1 %; IMMATURE GRANULOCYTES ABSOLUTE 0.01 10/3/uL (0.0-0.11); LYMPHOCYTES 15.2 %; LYMPHOCYTES ABSOLUTE 1.14 10/3/uL (0.67-4.30); MEAN CORPUS HGB CONC 31.1 g/dL (32.0-36.0); MEAN CORPUSCULAR HEMOGLOB 26.2 pg (26.0-34.0); MEAN CORPUSCULAR VOLUME 84.3 fL (80-100); MEAN PLATELET VOLUME 9.7 fL (9.2-13.0); MONOCYTES 6.9 %; MONOCYTES ABSOLUTE 0.52 10/3/uL (0.21-1.20); NEUTROPHILS 70.5 %; PLATELET COUNT 277 10/3/uL (150-400); RBC DISTRIBUTION WIDTH 16.2 % (12.0-16.0); RED CELL COUNT 3.13 10/6/uL (4.7-6.1); WHITE BLOOD CELLS 7.5 10/3/uL (4.5-10.5)
[2017-03-30 08:24] LABS: MANUAL DIFF NO %
[2017-03-30 08:39] LABS: ALBUMIN 2.6 G/DL (3.5-5.0); CALCIUM, SERUM 8.8 MG/DL (8.5-10.4); CHLORIDE, SERUM 104 MMOL/L (96-112); CO2 (CARBON DIOXIDE) 28 MMOL/L (24-34); CREATININE 3.28 MG/DL (0.70-1.30); GFR AFRICAN AMERICAN 25 ML/MIN (>=60); GFR NON AFRICAN AMERICAN 21 ML/MIN (>=60); PHOSPHORUS, SERUM 3.2 MG/DL (2.5-4.5); POTASSIUM, SERUM 3.9 MMOL/L (3.5-5.3); SODIUM, SERUM 139 MMOL/L (135-148)
[2017-03-30 08:40] LABS: BUN (BLOOD UREA NITROGEN) 30 MG/DL (6-23); GLUCOSE, SERUM 110 MG/DL (60-99)
[2017-03-31 06:19] LABS: BASOPHILS 0.4 %; BASOPHILS ABSOLUTE 0.03 10/3/uL (0.0-0.16); EOSINOPHILS ABSOLUTE 0.55 10/3/uL (0.0-0.53); HEMATOCRIT 28.6 % (40.0-51.0); HEMOGLOBIN 8.8 g/dL (13.6-17.8); IMMATURE GRANULOCYTES 0.3 %; IMMATURE GRANULOCYTES ABSOLUTE 0.02 10/3/uL (0.0-0.11); LYMPHOCYTES 12.8 %; LYMPHOCYTES ABSOLUTE 1.01 10/3/uL (0.67-4.30); MANUAL DIFF NO %; MEAN CORPUS HGB CONC 30.8 g/dL (32.0-36.0); MEAN CORPUSCULAR HEMOGLOB 26.2 pg (26.0-34.0); MEAN CORPUSCULAR VOLUME 85.1 fL (80-100); MEAN PLATELET VOLUME 9.7 fL (9.2-13.0); MONOCYTES 6.7 %; MONOCYTES ABSOLUTE 0.53 10/3/uL (0.21-1.20); NEUTROPHILS 72.8 %; NEUTROPHILS ABSOLUTE 5.77 10/3/uL (2.02-8.40); PLATELET COUNT 301 10/3/uL (150-400); RBC DISTRIBUTION WIDTH 15.8 % (12.0-16.0); RED CELL COUNT 3.36 10/6/uL (4.7-6.1); WHITE BLOOD CELLS 7.9 10/3/uL (4.5-10.5)
[2017-03-31 06:23] LABS: ALBUMIN 2.8 G/DL (3.5-5.0); CALCIUM, SERUM 9.1 MG/DL (8.5-10.4); CHLORIDE, SERUM 103 MMOL/L (96-112); CO2 (CARBON DIOXIDE) 26 MMOL/L (24-34); CREATININE 3.17 MG/DL (0.70-1.30); GFR AFRICAN AMERICAN 26 ML/MIN (>=60); GFR NON AFRICAN AMERICAN 22 ML/MIN (>=60); POTASSIUM, SERUM 4.1 MMOL/L (3.5-5.3); SODIUM, SERUM 139 MMOL/L (135-148)
[2017-03-31 06:25] LABS: BUN (BLOOD UREA NITROGEN) 37 MG/DL (6-23); GLUCOSE, SERUM 151 MG/DL (60-99)
[2017-03-31 07:04] LABS: PROCALCITONIN 0.12 ng/mL (<0.5)
[2017-04-01 05:08] LABS: BASOPHILS 0.4 %; BASOPHILS ABSOLUTE 0.03 10/3/uL (0.0-0.16); EOSINOPHILS 6.7 %; EOSINOPHILS ABSOLUTE 0.57 10/3/uL (0.0-0.53); HEMOGLOBIN 8.6 g/dL (13.6-17.8); IMMATURE GRANULOCYTES 0.2 %; IMMATURE GRANULOCYTES ABSOLUTE 0.02 10/3/uL (0.0-0.11); LYMPHOCYTES 15.1 %; LYMPHOCYTES ABSOLUTE 1.28 10/3/uL (0.67-4.30); MEAN CORPUS HGB CONC 31.9 g/dL (32.0-36.0); MEAN CORPUSCULAR HEMOGLOB 26.7 pg (26.0-34.0); MEAN CORPUSCULAR VOLUME 83.9 fL (80-100); MEAN PLATELET VOLUME 9.5 fL (9.2-13.0); MONOCYTES 6.8 %; MONOCYTES ABSOLUTE 0.58 10/3/uL (0.21-1.20); NEUTROPHILS 70.8 %; NEUTROPHILS ABSOLUTE 5.99 10/3/uL (2.02-8.40); PLATELET COUNT 292 10/3/uL (150-400); RBC DISTRIBUTION WIDTH 15.6 % (12.0-16.0); RED CELL COUNT 3.22 10/6/uL (4.7-6.1); WHITE BLOOD CELLS 8.5 10/3/uL (4.5-10.5)
[2017-04-01 05:09] LABS: MANUAL DIFF NO %
[2017-04-01 05:13] LABS: ALBUMIN 2.7 G/DL (3.5-5.0); CALCIUM, SERUM 8.7 MG/DL (8.5-10.4); CHLORIDE, SERUM 102 MMOL/L (96-112); CO2 (CARBON DIOXIDE) 27 MMOL/L (24-34); CREATININE 3.03 MG/DL (0.70-1.30); GFR AFRICAN AMERICAN 27 ML/MIN (>=60); GFR NON AFRICAN AMERICAN 24 ML/MIN (>=60); GLUCOSE, SERUM 152 MG/DL (60-99); PHOSPHORUS, SERUM 3.4 MG/DL (2.5-4.5); POTASSIUM, SERUM 3.8 MMOL/L (3.5-5.3); SODIUM, SERUM 140 MMOL/L (135-148)
[2017-04-01 05:18] LABS: BUN (BLOOD UREA NITROGEN) 45 MG/DL (6-23)
[2017-04-01] MEDS ORDERED: CARDCD180 PO (18:45)
[2017-04-01] MEDS ORDERED: NOVOLOG SC (18:47)
[2017-04-01] MEDS ORDERED: HYDROCHLOROT12.5 MG (18:47)
[2017-04-01] MEDS ORDERED: PROTONIX PO (18:52)
[2017-04-01] MEDS ORDERED: DEMA100 PO (18:53)
[2017-04-01] MEDS ORDERED: HYDRALAZINE100 MG PO (18:53)
== END 2017-04-01 20:07 | disposition home health service (06) | DRG 40 ==
LOC: CDU1 17:29 → 6NO 03-07 15:43
PROVIDERS: Hospitalist; Internal Medicine; Internal Medicine Gastroenterology; Internal Medicine Nephrology; Registered Nurse
PROC: 30233N1 Transfusion of Nonautologous Red Blood Cells into Peripheral Vein, Percutaneous Approach (ICD-10-PCS; 2017-03-11)
PROC: 05HM33Z Insertion of Infusion Device into Right Internal Jugular Vein, Percutaneous Approach (ICD-10-PCS; 2017-03-13)
PROC: B5131ZA Fluoroscopy of Right Jugular Veins using Low Osmolar Contrast, Guidance (ICD-10-PCS; 2017-03-13)
PROC: 5A1D60Z (ICD-10-PCS; 2017-03-13)
PROC: 0W3P8ZZ Control Bleeding in Gastrointestinal Tract, Via Natural or Artificial Opening Endoscopic (ICD-10-PCS; 2017-03-14)
PROC: 3E0G8GC Introduction of Other Therapeutic Substance into Upper GI, Via Natural or Artificial Opening Endoscopic (ICD-10-PCS; 2017-03-14)
PROC: 0DJD8ZZ Inspection of Lower Intestinal Tract, Via Natural or Artificial Opening Endoscopic (ICD-10-PCS; 2017-03-14)
PROC: 0KBW0ZZ Excision of Left Foot Muscle, Open Approach (ICD-10-PCS; principal; 2017-03-14 10:46)
PROC: 0KBW0ZZ Excision of Left Foot Muscle, Open Approach (ICD-10-PCS; 2017-03-20)
PROC: 05PYX3Z Removal of Infusion Device from Upper Vein, External Approach (ICD-10-PCS; 2017-04-01)
DX: E11.40 Type 2 diabetes mellitus with diabetic neuropathy, unspecified (principal); K26.4 Chronic or unspecified duodenal ulcer with hemorrhage; E11.21 Type 2 diabetes mellitus with diabetic nephropathy; N18.4 Chronic kidney disease, stage 4 (severe); N17.9 Acute kidney failure, unspecified; E11.621 Type 2 diabetes mellitus with foot ulcer; D62 Acute posthemorrhagic anemia; L97.429 Non-pressure chronic ulcer of left heel and midfoot with unspecified severity; Z68.43 Body mass index [BMI] 50.0-59.9, adult; L03.116 Cellulitis of left lower limb; I12.9 Hypertensive chronic kidney disease with stage 1 through stage 4 chronic kidney disease, or unspecified chronic kidney disease; E11.319 Type 2 diabetes mellitus with unspecified diabetic retinopathy without macular edema; J45.909 Unspecified asthma, uncomplicated; D72.829 Elevated white blood cell count, unspecified; I87.2 Venous insufficiency (chronic) (peripheral); K29.70 Gastritis, unspecified, without bleeding; E78.5 Hyperlipidemia, unspecified; B96.20 Unspecified Escherichia coli [E. coli] as the cause of diseases classified elsewhere; D12.3 Benign neoplasm of transverse colon; D12.2 Benign neoplasm of ascending colon; K62.89 Other specified diseases of anus and rectum; K64.1 Second degree hemorrhoids; E87.6 Hypokalemia; D47.2 Monoclonal gammopathy; E66.01 Morbid (severe) obesity due to excess calories; E03.9 Hypothyroidism, unspecified; I73.9 Peripheral vascular disease, unspecified; Z79.4 Long term (current) use of insulin; Z86.010 Personal history of colon polyps
CPT/HCPCS: 36415; 36558; 36589; 36590; 71020; 73718-LT; 76937; 77001; 80048; 80053; 80069; 80074; 80202; 81001; 82272; 82570; 82607; 82728; 82746; 82784; 82962; 83036; 83540; 83550; 83605; 83735; 83880; 83883; 83883-59; 84145; 84155; 84156; 84165; 84439; 84443; 84484; 84999; 85007; 85014; 85018; 85025; 85027; 85610; 86334; 86335; 86850; 86900; 86901; 86920; 87015; 87040; 87070; 87075; 87077; 87101; 87102; 87116; 87186; 87205; 87206; 87389; 87493; 87493-59; 93005; 93925; 97110-GO; 97110-GP; 97162-GP; 97166-GO; 97530-GP; 97535-GO; 99152; 99153; A9270-GY; C1769; C8929; C9113; G0257; J0360; J0692; J0885; J1205; J1956; J2250; J2405; J2543; J3010; J3370; J3475; P9016; P9047; Q9957

== ENCOUNTER 2017-05-07 17:26 | Inpatient (IN) | payer BC ==
--- NOTE | ~2017-05-07 | DS ---
Discharge Summary [facility] [address] [place]. [address] NAME: JENNIFER WILLIAMSON : 70 STATUS : DIS IN PAT#: [id number] AGE: 46 ADM/REG DATE : 05/07/17 MR#: [id number] REPORT SERV DATE: 05/22/17 DICTATED BY: RADHA MOJICA DATE: 05/21/17 REPORT STATUS : Draft TRANSCRIBED BY: MODL DATE: 05/21/17 ADMISSION DATE: 05/07/2017 DISCHARGE DATE: 05/21/2017 CONDITION ON DISCHARGE: Stable. DISPOSITION: Discharged to [facility] for further inpatient rehab. DIAGNOSES ON DISCHARGE: 1. Status post left below-knee amputation for diabetic foot ulcer and osteomyelitis - the patient is doing well and is not requiring antibiotics anymore post amputation. 2. All of these are chronic and these include:. a. Diabetes mellitus, requiring high doses of insulin, which is controlled better now. b. Diabetic neuropathy, which is stable. c. Diabetic nephropathy with chronic kidney disease, stage IV, with baseline creatinine around 1.9 to 2, which is stable right now. d. Hypertension, controlled with medications. BRIEF HOSPITAL COURSE: Mr. Williamson is a 46-year-old male patient, who was admitted with infected foot. The patient did have a diabetic foot ulcer on the left foot along with cellulitis and also osteomyelitis. The patient was started on IV antibiotics and surgical consult was obtained. Surgeon, Dr. Gamboa, felt that the patient would benefit from a left BKA as we were unable to salvage his left foot and ankle because of the extensive involvement of both, osteomyelitis, and also involvement of the foot with infection. Hence, the patient underwent a left BKA on 05/12/2017. The patient has been doing well since the below-knee amputation. For the last three or four days, the patient has been waiting for a bed in inpatient rehab, and today, he has been approved to go to [facility] as they do have a bed available on 05/21/2017. Hence, the patient is being transferred in stable condition for further rehab as an inpatient at [facility]. For further details, please see Dr. Dawson Gamboa's record of operative procedure for the left below-knee amputation dictated on 05/13/2017. OTHER CONSULTS OBTAINED DURING HOSPITALIZATION: Also include Nephrology consult by Dr. Doyle Weir for acute kidney injury on chronic kidney disease. Eventually, the PAYAL also resolved, but the patient does have late chronic kidney disease, stage IV. His baseline creatinine is around 2. In fact, the patient has had a temporary dialysis, previously and this has actually been discontinued as the patient did well without the dialysis itself. So patient is being transferred to inpatient rehab in stable condition and his medications that he is going to be discharged on has already been taken care of by my partner, Dr. Felipe Carney, and I have reviewed the medications and updated the list without any changes at this time. He will be on the following medications: He will be on Bystolic 10 mg p.o. daily, Demodex 50 mg p.o. daily, Imdur 30 mg p.o. daily, Levemir 18 units subcutaneously at bedtime and 26 units subcutaneously in the morning, Lipitor 40 mg once a Discharge Summary [address] [address] NAME: JENNIFER WILLIAMSON : 70 STATUS : DIS IN PAT#: [id number] AGE: 46 ADM/REG DATE : 05/07/17 MR#: [id number] REPORT SERV DATE: 05/22/17 DICTATED BY: RADHA MOJICA DATE: 05/21/17 REPORT STATUS : Draft TRANSCRIBED BY: JUAN DATE: 05/21/17 day, NovoLog injection 8 units subcutaneously before meals and sliding scale level 2, and Protonix 40 mg p.o. once a day. These will be his regular medications, which he is going to be discharged to the rehab with. Again, as I mentioned, there is not a need for antibiotics anymore in this patient as he has undergone left BKA. The most recent labs I have on this patient include a WBC count of 9, hemoglobin 9.5, hematocrit 29.2, and platelet count of 292. Electrolyte profile shows sodium 137, potassium 4, BUN is 81, and creatinine is 2.1 as mentioned above. His glucose is 138, calcium normal, magnesium and phosphorus normal. I have spent about 35 minutes in coordinating discharge care of this patient including face- to-face encounter and summarizing this discharge. DICTATED BY: Marcie Acosta/JUAN Radha Mojica M.D. / [id number] CC: Marcie Gamez Jr.
--- NOTE | ~2017-05-07 | CN ---
Consultation Report [address] [place]. [address] NAME: JENNIFER WILLIAMSON : 70 STATUS : ADM IN PAT#: [id number] AGE: 46 ADM/REG DATE : 05/07/17 MR#: [id number] REPORT SERV DATE: 05/08/17 DICTATED BY: RUDYPALMA HUEY DATE: 05/07/17 REPORT STATUS : Draft TRANSCRIBED BY: MODL DATE: 05/07/17 CONSULTATION DATE OF CONSULTATION: 05/07/2017 REASON FOR CONSULTATION: Consulted for diabetes management. IDENTIFYING DATA: 1. PCP: Cynthia Galvin NP. 2. Manager Child in the past: Ruben Modi M.D. 3. Web Assistant: Dawson Sung M.D. 4. Curing Room Supervisor: Danielle Valles MD. 5. Infectious Disease: Jak Mendez M.D. 6. Orthopedist: Dawson Cooper M.D. HISTORY OF PRESENT ILLNESS: This is a pleasant 46-year-old, male, with a long- standing history of being diabetic type 2 with neuropathy as well as retinopathy. The patient also has had problems with wound infections related to his diabetes as well as acute kidney injury and chronic kidney disease for which he was on previous hemodialysis on admission date of 03/05/2017 for which he was actually discharged on 04/01/2017. The patient is presently admitted per Dr. Dawson Gamboa for a left diabetic foot infection. The hospitalist group has been consulted to help manage his diabetes. The patient's history was obtained through interview with the patient, coupled with review of [employer] and [employer]. PAST MEDICAL HISTORY: 1. Myopia. 2. Diabetic retinopathy. 3. Anxiety. 4. Depression. 5. Cellulitis. 6. Anasarca with nephrotic syndrome. 7. Acute kidney injury, which resulted in chronic kidney disease stage 4, which he was on previous dialysis. 8. High cholesterol. 9. Dyslipidemia. 10.Hypertension. 11.Asthma. 12.Arthritis. 13.Ulcers. 14.Anemia. 15.Upper GI bleed. 16.Morbid obesity. Consultation Report [address] [place]. [address] NAME: JENNIFER WILLIAMSON : 70 STATUS : ADM IN PAT#: [id number] AGE: 46 ADM/REG DATE : 05/07/17 MR#: [id number] REPORT SERV DATE: 05/08/17 DICTATED BY: PALMA GRANT DATE: 05/07/17 REPORT STATUS : Draft TRANSCRIBED BY: JUAN DATE: 05/07/17 17.Murmur. 18.GERD. 19.Previous hemodialysis. 20.Subclinical hypothyroidism. 21.Chronic snoring with no use of CPAP and no official diagnosis of obstructive sleep apnea. CURRENT MEDICATIONS: 1. Artificial Tears ophthalmically twice a day p.r.n. dry eyes. 2. Lipitor 40 mg p.o. daily. 3. Vitamin D 2000 units p.o. daily. 4. Cartia XT 180 mg p.o. daily. The patient has had this medication on hold stating he has nausea and vomiting and his blood pressure has been low. 5. Ferrous sulfate 325 mg p.o. twice a day. 6. NovoLog sliding scale before meals and at bedtime. 7. Lantus 65 units subcu at bedtime. 8. Bystolic 10 mg p.o. daily. 9. Protonix 40 mg p.o. daily. 10.Demadex 100 mg p.o. every morning. 11.Demadex 50 mg p.o. at 1400 hours. ALLERGIES: NO KNOWN ALLERGIES. SOCIAL HISTORY: The patient is . Lives in a split-level home. Uses a wheelchair and a walker if needed to get around his home. No tobacco, alcohol, or illicit drug use. 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 Has four children. FAMILY HISTORY: Both parents are . Father had end-stage kidney disease, was diabetic and required dialysis. Mother had gastric cancer. The patient has one brother who is alive and healthy. SURGICAL HISTORY: 1. Endoscopy for 03/14/2017 for GI bleed, gastritis, and polyps and noted having a bleeding duodenal ulcer. 2. Toe amputation on the left foot. 3. PermCath on 03/13/2017. 4. Previous right foot surgery. 5. Right knee surgery and also infection on 01/03/2017. REVIEW OF SYSTEMS: Negative other than what is in HPI. The patient is alert and oriented x3. He has no shortness of breath. Denies abdominal pain. Denies chest pain. Denies fever. Displays no confusion or agitation. Does state that he has had nausea. His appetite has been poor at home. He did have vomiting prior to admission. States he is having one of his medications Consultation Report [facility] [id number] [place]. [address] NAME: JENNIFER WILLIAMSON : 70 STATUS : ADM IN PAT#: [id number] AGE: 46 ADM/REG DATE : 05/07/17 MR#: [id number] REPORT SERV DATE: 05/08/17 DICTATED BY: PALMA GRANT DATE: 05/07/17 REPORT STATUS : Draft TRANSCRIBED BY: MODL DATE: 05/07/17 for blood pressure on hold because his pressure has been running low. PHYSICAL EXAMINATION: VITAL SIGNS: From today, blood pressure 136/61, heart rate 75, respiratory rate 17, O2 saturation 98% on room air, and temperature 98.5. GENERAL: This is a very pleasant, 46-year-old, male, who is resting in bed. No acute distress. States he is going to try to eat a little bit of his dinner tonight but his appetite has been poor and he has been having a lot of nausea. NEURO: His head is atraumatic, normocephalic. He is alert and oriented x3. His cranial nerves are intact. His mood is pleasant and appropriate. NECK: Supple. Trachea is midline. No JVD. No obvious thyromegaly or lymphadenopathy. EENT: Sclerae are nonicteric. The patient does have a history of diabetic retinopathy. His nares are patent. His mucous membranes are moist. His tongue is midline. No deviation. His soft palate raises equally with phonation. CHEST: No pain with palpation. LUNGS: Clear to auscultation bilaterally. The patient displays a normal respiratory effort. No increased work of breathing with conversation. He is presently on room air with O2 saturation at 98%. He does have a history of chronic snoring although he states he is not on CPAP nor has had an official diagnosis of sleep apnea. CARDIOVASCULAR: S1, S2. The patient has a regular rhythm. He is on telemetry with a sinus rhythm, noted with a rate at 75. ABDOMEN: Soft, nontender. He has active bowel sounds. No palpable organomegaly. EXTREMITIES: He has a left foot that is wrapped for his foot infection. He has diminished pulses to the right lower extremity. He will have bilateral SCDs in place for DVT prophylaxis. The patient has had a previous history of GI bleed as well as anemia. SKIN: Warm and dry. No unusual lesion. He has normal color and turgor. PSYCH: The patient is pleasant and cooperative. Appropriate mood and affect. LABORATORY DATA: Presently ordered. Awaiting on a CMP, a CBC, a PT/PTT, hemoglobin A1c. I do have an INR back at 1.3, a PT at 15.7, and a PTT at 18.6 for preop labs. His present blood sugar is 368. He has a pending a portable chest x-ray ordered. He had an ECG today on 05/07/2017 that showed a normal sinus rhythm with a rate at 73 with a prolonged QT. ASSESSMENT AND PLAN: This is a pleasant, 46-year-old, male, who has numerous problems relating to his diabetes including retinopathy, nephropathy, and neuropathy. 1. Diabetes type 2. He does have a previous hemoglobin A1c noted on 03/31/2017 at a 7.2. He states he checks his blood sugar numerous times per day, sometimes 4 times a day. His average blood sugar in the morning might be 140 to 150 and he states in the evening 250 to 280. Presently, he is not eating well. He has had nausea and vomiting at home. He is normally on a sliding scale of NovoLog as well as Levemir 65 units in the evening with dinner. He is on 1800-calorie ADA diet this evening. He will be n.p.o. after midnight. We will place him on a sliding scale level 2 with a hypoglycemic protocol. We will administer Levemir 20 units subcu x1 tonight and recheck his blood sugar at 12 midnight. We will have a diabetes educator discuss diet and monitoring with him as well as check a hemoglobin A1c. The a.m. team will need to re-evaluate his Levemir Consultation Report [facility] [address] [place]. [address] NAME: JENNIFER WILLIAMSON : 70 STATUS : ADM IN PAT#: [id number] AGE: 46 ADM/REG DATE : 05/07/17 MR#: [id number] REPORT SERV DATE: 05/08/17 DICTATED BY: PALMA GRANT DATE: 05/07/17 REPORT STATUS : Draft TRANSCRIBED BY: MODBoni DATE: 05/07/17 dose nightly after he is off n.p.o. status depending on what he eats and what his blood sugars are. 2. Hypertension. The patient also has a history of murmur. He previously saw Cardiology for management of high blood pressure for which now he states his primary care physician, Cynthia Galvin, handles that for him. He is normally on Cartia XL 180 mg as well as Bystolic 10 mg. due to the nausea and vomiting, his Cartia has been on hold. He does take his Bystolic daily. Presently, his blood pressure is 136/61. We will continue the Bystolic. We will continue to hold the Cartia. He is also on Demadex daily preoperatively, and we will hold that for now. We will have to re-evaluate blood pressure as needed. If it becomes elevated, we will address additional medications to control hypertension. 3. Left foot infection. The patient is admitted by Dr. Gamboa for a diabetic foot ulcer. He has had blood cultures x2, and Dr. Gamboa has placed him on vancomycin and Zosyn. 4. Dyslipidemia. Aware. The patient has a history of high cholesterol. We will continue his Lipitor daily. 5. GERD. The patient has a history of GI bleed in the past on previous admission as well as gastritis and an ulcer which was noted 03/14/2017. He is on Protonix at home, and we will continue that daily. 6. Chronic kidney disease. The patient on previous admission had a history of nephrotic syndrome, acute kidney injury, and chronic kidney disease that led to dialysis and placement of a PermCath on 03/13/2017. Upon his discharge in March 2017, he no longer was receiving dialysis and had his PermCath discontinued. 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 Pending surgery, we will have gentle hydration with normal saline at 50 mL/hour. We will hold his Demadex for now. I think his previous creatinine noted on last admission was 3.3. 7. Labs to be obtained. a. CMP. b. CBC. c. PT and PTT. d. Hemoglobin A1c. e. Blood cultures x2. f. EKG. g. TSH and free T4. h. Urinalysis. i. Portable chest x-ray. The hospitalist group would like to thank you for this consultation and let us know if we can be of further assistance. /JUAN Palma Grant NP Consultation Report [address] [place]. [address] NAME: JENNIFER WILLIAMSON : 70 STATUS : ADM IN PAT#: [id number] AGE: 46 ADM/REG DATE : 05/07/17 MR#: [id number] REPORT SERV DATE: 05/08/17 DICTATED BY: PALMA GRANT DATE: 05/07/17 REPORT STATUS : Draft TRANSCRIBED BY: JUAN DATE: 05/07/17 / [id number] CC: Marcie Gamez Jr., NP
--- NOTE | ~2017-05-07 | CN ---
Consultation Report [facility] [address] [place]. [address] NAME: JENNIFER WILLIAMSON : 70 STATUS : ADM IN PAT#: [id number] AGE: 46 ADM/REG DATE : 05/07/17 MR#: [id number] REPORT SERV DATE: 05/08/17 DICTATED BY: DOYLE WEIR DATE: 05/08/17 REPORT STATUS : Draft TRANSCRIBED BY: MODBoni DATE: 05/08/17 CONSULTATION DATE OF CONSULTATION: REASON FOR CONSULTATION: Acute kidney injury on chronic kidney disease. HISTORY OF PRESENT ILLNESS: A very pleasant morbidly obese, 46-year-old male patient, we were asked to see in evaluation for acute kidney injury on chronic kidney disease. He is well known to our service and was previously seen during an inpatient admission for a foot infection. He was also noted to be profoundly volume overloaded and required dialysis while inpatient. He was eventually able to recover and removed from hemodialysis on discharge. He was followed up with our office and on 05/01/2017, his creatinine was at 3.6, with a BUN of 110, sodium 133, GFR of 20, K of 4.0, glucose continued to be difficult for him to control, with glucose measured on labs that day at 302. His diuretics were subsequently modified in reduction to provide some level of traction to maintain his renal function and reasonable diuresis, as the hydrochlorothiazide was removed, and he was maintained on his Demadex dosing at its previous level. He returns to [facility] and is admitted to Dr. Gamboa's service for an incision and debridement of his left foot with questionable osteomyelitis, with further examinations planned to evaluate any manifestation for osteomyelitis, and further need for antibiotics, or surgical intervention. The Hospitalist Service has been requested to maintain his medical comorbidities including his diabetes and we are asked to evaluate him in light of his renal dysfunction. The patient reports that he has had a decreasing appetite and has lost weight over the last several weeks. He describes food as poor tasting and complains of frequent nausea. He does not complain of insomnia, overt itching, and does not appear to be acutely confused. He is awake and alert this morning. He is an excellent historian. He denies current chest pain. Chronically nauseous as above. No vomiting or diarrhea. 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 Dawson Sung, with creatinine at 3.6 on that date, history is also positive for diabetes mellitus with poor control, hypertension, morbid obesity, nephrotic syndrome, history of cellulitis, history of hyperkalemia, diabetes mellitus type 2, diabetic retinopathy, dyslipidemia, anxiety, depression, and asthma. PAST SURGICAL HISTORY: Previous right knee surgery, amputation of toes, catheter placement for dialysis as above and removal. SOCIAL HISTORY: No ETOH. No illicit drugs. No tobacco. He has children and lives here locally. FAMILY HISTORY: Noncontributory and not reviewed during this consultation and dictation. Consultation Report [address] [place]. [address] NAME: JENNIFER WILLIAMSON : 70 STATUS : ADM IN [facility]#: [id number] AGE: 46 ADM/REG DATE : 05/07/17 MR#: [id number] REPORT SERV DATE: 05/08/17 DICTATED BY: DOYLE WEIR DATE: 05/08/17 REPORT STATUS : Draft TRANSCRIBED BY: JUAN DATE: 05/08/17 REVIEW OF SYSTEMS: Completed. Please see HPI for pertinent details. ALLERGIES: HE LISTS NO KNOWN ALLERGIES. ACTIVE MEDICATIONS: Artificial Tears 1 mL OPH b.i.d. p.r.n., Lipitor 40 mg p.o. daily, vitamin D 2000 units daily, Cartia XT 180 mg p.o. daily, ferrous sulfate 325 mg p.o. b.i.d., NovoLog via sliding scale, Lantus insulin 65 units subcu at bedtime, Bystolic 10 mg daily, Protonix 40 mg daily, torsemide 100 mg p.o. daily and 50 mg in the evening. PHYSICAL EXAMINATION: VITAL SIGNS: Blood pressure 111/57, temperature 98.0, respiratory rate at 16, heart rate is 62 beats per minute and regular. He is 99% on room air. GENERAL: He is an obese-appearing male patient, in no acute distress, lying in bed during evaluation. HEENT: Normocephalic and atraumatic. Normal ocular movements. No scleral icterus or conjunctival pallor is appreciated. NECK: Supple. No thyromegaly. No JVD or mass. CHEST: Shows positive S1 and S2. No rubs or gallops. LUNGS: Diminished, but clear to auscultation. Otherwise throughout normal expansion and effort bilaterally. GASTROINTESTINAL: Shows a rounded obese abdomen. Positive bowel sounds in all four quadrants. No appreciable mass or tenderness. GENITOURINARY: Examination is deferred. EXTREMITIES: Show positive edema, but not overt overload as before. NEUROLOGIC: He appears to be grossly intact. Nonfocal. SKIN: Warm, dry, and intact to visualized surfaces. No rash, lesions, or ecchymosis with the exception of his wounds to his left lower extremities which are wrapped, and with a scant amount of blood in the dressing. LABORATORY DATA: Pertinent laboratories and imaging to this evaluation are as follows. Urinalysis shows hazy appearance with a greater than 500 mg/dL of protein, moderate leukocyte esterase, RBCs, and white blood cells, with rare mucus. There is also noted a small amount of blood. Portable chest x-ray shows clear lungs throughout with no acute findings. Wound culture is negative. Comprehensive metabolic panel; sodium 130, potassium 3.7, chloride 93, CO2 23, BUN 110, creatinine 3.87, Reflected GFR at 17 mL/minute, glucose of 346, calcium 8.9, magnesium 1.4, albumin 2.4, globulin 5.8, alkaline phos 152, ALT 57, AST 43, TSH 1.330, free T4 at 136. CBC; white blood cell count of 20.7, RBC 3.88, hemoglobin 10.3, hematocrit 32.3, platelets at 272. Previous AFB culture, no acid-fast bacilli seen. IMPRESSION AND PLAN: This is a late chronic kidney disease stage 4. The patient with recent inpatient hospital admission with profound volume overload requiring a stint of dialysis with recovery of renal function to maintain himself off hemodialysis, with followup with Dr. Consultation Report [address] [place]. [address] NAME: JENNIFER WILLIAMSON : 70 STATUS : ADM IN [facility]#: [id number] AGE: 46 ADM/REG DATE : 05/07/17 MR#: [id number] REPORT SERV DATE: 05/08/17 DICTATED BY: DOYLE WEIR DATE: 05/08/17 REPORT STATUS : Draft TRANSCRIBED BY: JUAN DATE: 05/08/17 [place] on 05/01/2017, with a creatinine at 3.8, GFR of 20 mL/minute, with modification and down turn of his diuretic pattern at that point. He is now admitted to Dr. Dawson Gamboa's service for a consideration for a lot left lower extremity infection and question of osteomyelitis, with plans for a bedside I and D, with imaging for osteomyelitis, and further workup to follow as clinically warranted. The hospitalist Service has been asked to follow his major medical needs including is diabetes. We are asked to evaluate him in light of his elevated creatinine at 3.87 with a BUN of 110. He is currently off his Demadex and had been previously removed from other diuretics by our service. He reports that he has had a weight loss over the last four to six weeks. His appetite is poor. Food has set to make him nauseous and tastes poorly. He does not report insomnia, does not appear to be acutely confused, and is not experiencing overt itching. We will continue currently with plan of action with his diuretics held, gentle IV fluids as placed by the hospitalist Service. Check urine studies, urine protein, urine creatinine, urine urea, 24-hour urine for creatinine clearance, as well as urinary protein as this gentleman is known to have nephrotic syndrome. Considering his complaints and symptomology he may at this point be near end-stage renal disease, or may be experiencing this symptomology that he states above in reference to some level of infection and/or sepsis with his left lower extremity. Defer antibiotics and major medical management to the Surgical Service and the Hospitalist Service. We would avoid contrast medium, ANA inhibitors, as well as ARBs at this point certainly with his advanced renal dysfunction, 24 hour urine as above for evaluation of protein and creatinine clearance, low threshold for initiation of hemodialysis, if his symptomatology were continue to worsen. Check procalcitonin, place on strict I's and O's, and follow closely. No need at this point for initiation of acute hemodialysis and no current plans for biopsy. We will modify treatment plan based on clinical presentation of the patient, laboratory results, further consultation with renal attending. We appreciate the consultation. We are glad to follow with you. DICTATED BY: Dawson Magaña NP JR/JUAN Doyle Weir M.D. / [id number] CC: Marcie Gamez Jr., VICKY L *
--- NOTE | ~2017-05-07 | OP ---
Record Of Operation [facility] [address] [place]. [address] NAME: JENNIFER WILLIAMSON : 70 STATUS : ADM IN PAT#: [id number] AGE: 46 ADM/REG DATE : 05/07/17 MR#: [id number] REPORT SERV DATE: 05/13/17 DICTATED BY: ALLEN RODRIGUEZ JR. DATE: 05/12/17 REPORT STATUS : Draft TRANSCRIBED BY: JUAN DATE: 05/12/17 DATE OF PROCEDURE: 05/12/2017 SURGEON: Allen Rodriguez MD RESIDENTIAL GLAZIER: Emily Hare. PROCEDURE: Left wubiw-aiy-jena amputation. PREOPERATIVE DIAGNOSIS: Diabetic foot ulcer with osteomyelitis. POSTOPERATIVE DIAGNOSIS: Diabetic foot ulcer with osteomyelitis. ANESTHESIA: General. INDICATIONS: The patient develops diabetic foot ulcer with severe infection, has been treated with limb salvage with negative pressure wound therapy and antibiotics. He had developed good healing, but then had regression of wound with development of extensive osteomyelitis involving multiple bones of the foot. It was not felt that foot salvage was indicated and amputation was therefore planned. FINDINGS: At the hwqvn-xwv-kpsi level, there was good fibrous tissue. There was no evidence of any infection and bone was healthy. DESCRIPTION OF PROCEDURE: With adequate general anesthesia, the patient was placed in supine position. The left leg was prepped and draped sterilely. A standard ldtxu-ddq-gfkp amputation was outlined with a posterior flap. Incision was made and deepened down through the soft tissues anteriorly. The tibia was identified. This was then divided with the oscillating saw. Soft tissues divided down to the fibula that was also divided with the saw. Vessels were clamped and divided and the amputation knife was utilized to divide. Soft tissue preserving a posterior musculature for the flap. Specimen was then removed and submitted to Pathology. Major bleeders controlled with suture ligatures of silk and minor vessels with cautery and suture ligatures of Vicryl. Then, the wound was closed in fashion. Multiple layers of 0 Vicryl and then the skin was approximated with mattress sutures of 3-0 nylon and eduardo. An overlay negative pressure dressing was placed. The patient tolerated the procedure well and left the operating room in satisfactory condition. ESTIMATED BLOOD LOSS: 150 mL. ASHLEY/JUAN Allen Rodriguez Jr., M.D. Record Of Operation [facility] [address] [place]. [address] NAME: JENNIFER WILLIAMOSN : 70 STATUS : ADM IN PAT#: [id number] AGE: 46 ADM/REG DATE : 05/07/17 MR#: [id number] REPORT SERV DATE: 05/13/17 DICTATED BY: ALLEN RODRIGUEZ JR. DATE: 05/12/17 REPORT STATUS : Draft TRANSCRIBED BY: JUAN DATE: 05/12/17 / [id number] CC: Marcie Gamez Jr., VICKY L
[~2017-05-07 17:26] MED LIST changes: +BYSTOLIC10 MG PO; +CARDCD180 PO; +CARTIA XT240 MG/24 PO; +DEMA100 PO; +HALF81 PO; +HYDRALAZINE100 MG PO; +HYDROCHLOROT12.5 MG; +NOVOLOG SC; +PROTONIX PO
[2017-05-07 20:33] LABS: INTERNATIONAL NORMAL RATI 1.3 UNITS (-); PROTIME (NOT ORD) 15.7 SEC (12.0-14.5)
[2017-05-07] MEDS ORDERED: FERROUS SULF325 M1 PO (20:56)
[2017-05-07] MEDS ORDERED: LIPITOR40 PO (20:59)
[2017-05-07] MEDS ORDERED: VITAMIN D2000 UNIT PO (20:59)
[2017-05-07] MEDS ORDERED: HYPOTEARS OPH S15 ML OPH (20:59)
[2017-05-07] MEDS ORDERED: BYSTOLIC10 MG PO (21:00)
[2017-05-07] MEDS ORDERED: LANTUS SC (21:01)
[2017-05-07] MEDS ORDERED: CARTIA XT180 MG/24 PO (21:01)
[2017-05-07] MEDS ORDERED: DEMA100 PO ×2 (21:02→21:03)
[2017-05-07] MEDS ORDERED: PROTONIX PO (21:02)
[2017-05-07] MEDS ORDERED: NOVOLOG SC (21:05)
[2017-05-07 21:23] LABS: PARTIAL THROMBO TIME 18.6 SEC (22.5-37.2)
[2017-05-07 22:51] LABS: BASOPHILS 0.1 %; BASOPHILS ABSOLUTE 0.03 10/3/uL (0.0-0.16); EOSINOPHILS 0 %; HEMATOCRIT 32.3 % (40.0-51.0); HEMOGLOBIN 10.3 g/dL (13.6-17.8); IMMATURE GRANULOCYTES 0.4 %; IMMATURE GRANULOCYTES ABSOLUTE 0.08 10/3/uL (0.0-0.11); LYMPHOCYTES 2.3 %; LYMPHOCYTES ABSOLUTE 0.48 10/3/uL (0.67-4.30); MEAN CORPUS HGB CONC 31.9 g/dL (32.0-36.0); MEAN CORPUSCULAR HEMOGLOB 26.5 pg (26.0-34.0); MEAN CORPUSCULAR VOLUME 83.2 fL (80-100); MEAN PLATELET VOLUME 10.9 fL (9.2-13.0); MONOCYTES ABSOLUTE 1.04 10/3/uL (0.21-1.20); NEUTROPHILS 92.2 %; PLATELET COUNT 272 10/3/uL (150-400); RBC DISTRIBUTION WIDTH 15.6 % (12.0-16.0); RED CELL COUNT 3.88 10/6/uL (4.7-6.1); WHITE BLOOD CELLS 20.7 10/3/uL (4.5-10.5)
[2017-05-07 22:52] LABS: MANUAL DIFF NO %
[2017-05-07 23:46] LABS: A/G RATIO 0.4 (0.7-1.9); ALBUMIN 2.4 G/DL (3.5-5.0); CALCIUM, SERUM 8.9 MG/DL (8.5-10.4); CHLORIDE, SERUM 93 MMOL/L (96-112); CO2 (CARBON DIOXIDE) 23 MMOL/L (24-34); FREE T4 1.36 NG/DL (0.76-1.46); GLOBULIN 5.8 G/DL (2.5-4.1); POTASSIUM, SERUM 3.7 MMOL/L (3.5-5.3); SGOT(AST) 43 U/L (5-40); SGPT(ALT) 57 U/L (5-65); TOTAL BILIRUBIN 0.7 MG/DL (0-1.2); TOTAL PROTEIN 8.2 G/DL (6.0-8.5)
[2017-05-07 23:49] LABS: ALKALINE PHOSPHATASE 152 U/L (45-117); BUN (BLOOD UREA NITROGEN) 110 MG/DL (6-23); CREATININE 3.87 MG/DL (0.70-1.30); GFR AFRICAN AMERICAN 20 ML/MIN (>=60); GFR NON AFRICAN AMERICAN 17 ML/MIN (>=60); GLUCOSE, SERUM 346 MG/DL (60-99); SODIUM, SERUM 130 MMOL/L (135-148)
[2017-05-08 09:16] LABS: ASCORBIC ACID (UR NOT ORDER) NEG (NEG); BILIRUBIN, URINE NEGATIVE (NEG); KETONE, URINE NEGATIVE (NEG); LEUKOCYTE ESTERASE(NOT OR MOD (NEG); WBC (NOT ORDERED) (RFLEX) 54 (0-5)
[2017-05-09 06:21] LABS: BASOPHILS 0.2 %; BASOPHILS ABSOLUTE 0.02 10/3/uL (0.0-0.16); EOSINOPHILS ABSOLUTE 0.11 10/3/uL (0.0-0.53); IMMATURE GRANULOCYTES 0.3 %; IMMATURE GRANULOCYTES ABSOLUTE 0.03 10/3/uL (0.0-0.11); LYMPHOCYTES 12.6 %; LYMPHOCYTES ABSOLUTE 1.35 10/3/uL (0.67-4.30); MEAN CORPUS HGB CONC 32.4 g/dL (32.0-36.0); MEAN PLATELET VOLUME 10.5 fL (9.2-13.0); MONOCYTES 7.5 %; MONOCYTES ABSOLUTE 0.81 10/3/uL (0.21-1.20); NEUTROPHILS 78.4 %; NEUTROPHILS ABSOLUTE 8.42 10/3/uL (2.02-8.40); PLATELET COUNT 309 10/3/uL (150-400); RBC DISTRIBUTION WIDTH 15.4 % (12.0-16.0); RED CELL COUNT 3.46 10/6/uL (4.7-6.1)
[2017-05-09 06:24] LABS: HEMATOCRIT 27.8 % (40.0-51.0); MANUAL DIFF NO %; MEAN CORPUSCULAR VOLUME 80.3 fL (80-100); WHITE BLOOD CELLS 10.7 10/3/uL (4.5-10.5)
[2017-05-09 06:35] LABS: A/G RATIO 0.4 (0.7-1.9); ALBUMIN 2.2 G/DL (3.5-5.0); CALCIUM, SERUM 8.8 MG/DL (8.5-10.4); CHLORIDE, SERUM 99 MMOL/L (96-112); CO2 (CARBON DIOXIDE) 25 MMOL/L (24-34); GLOBULIN 5.5 G/DL (2.5-4.1); PHOSPHORUS, SERUM 4.3 MG/DL (2.5-4.5); POTASSIUM, SERUM 3.7 MMOL/L (3.5-5.3); SGOT(AST) 56 U/L (5-40); SGPT(ALT) 60 U/L (5-65); SODIUM, SERUM 135 MMOL/L (135-148); TOTAL BILIRUBIN 0.3 MG/DL (0-1.2); TOTAL PROTEIN 7.7 G/DL (6.0-8.5)
[2017-05-09 06:36] LABS: ALKALINE PHOSPHATASE 135 U/L (45-117); BUN (BLOOD UREA NITROGEN) 105 MG/DL (6-23); GFR AFRICAN AMERICAN 28 ML/MIN (>=60); GFR NON AFRICAN AMERICAN 24 ML/MIN (>=60); GLUCOSE, SERUM 105 MG/DL (60-99)
[2017-05-09 16:44] LABS: URINE CREAT 1.85 G/T VOL (0.6-2.8)
[2017-05-09 18:56] LABS: CREAT SERUM (NOT ORDER) 3.07 MG/DL (0.53-1.43)
[2017-05-10 01:41] LABS: T.P. URINE (NOT ORDER RAN 136.8 MG/DL
[2017-05-10 01:56] LABS: T.P.24HR UR (NOT ORDER) 2189 MG/24HR (40-150); T.V. 24HR UR (NOT ORD) 1600 ML (600-1600)
[2017-05-10 07:46] LABS: BASOPHILS 0.2 %; BASOPHILS ABSOLUTE 0.02 10/3/uL (0.0-0.16); EOSINOPHILS 1.9 %; EOSINOPHILS ABSOLUTE 0.17 10/3/uL (0.0-0.53); HEMATOCRIT 26.7 % (40.0-51.0); HEMOGLOBIN 8.6 g/dL (13.6-17.8); IMMATURE GRANULOCYTES 0.3 %; IMMATURE GRANULOCYTES ABSOLUTE 0.03 10/3/uL (0.0-0.11); LYMPHOCYTES 14.9 %; LYMPHOCYTES ABSOLUTE 1.32 10/3/uL (0.67-4.30); MEAN CORPUS HGB CONC 32.2 g/dL (32.0-36.0); MEAN CORPUSCULAR HEMOGLOB 25.6 pg (26.0-34.0); MEAN CORPUSCULAR VOLUME 79.5 fL (80-100); MEAN PLATELET VOLUME 10.3 fL (9.2-13.0); MONOCYTES 10.2 %; NEUTROPHILS 72.5 %; PLATELET COUNT 301 10/3/uL (150-400); RBC DISTRIBUTION WIDTH 15.5 % (12.0-16.0); RED CELL COUNT 3.36 10/6/uL (4.7-6.1); WHITE BLOOD CELLS 8.8 10/3/uL (4.5-10.5)
[2017-05-10 07:49] LABS: MANUAL DIFF NO %
[2017-05-10 08:04] LABS: ALBUMIN 2.2 G/DL (3.5-5.0); CHLORIDE, SERUM 103 MMOL/L (96-112); CO2 (CARBON DIOXIDE) 25 MMOL/L (24-34); CREATININE 2.51 MG/DL (0.70-1.30); GFR AFRICAN AMERICAN 34 ML/MIN (>=60); GFR NON AFRICAN AMERICAN 30 ML/MIN (>=60); PHOSPHORUS, SERUM 3.9 MG/DL (2.5-4.5); POTASSIUM, SERUM 4.3 MMOL/L (3.5-5.3); SODIUM, SERUM 134 MMOL/L (135-148)
[2017-05-10 08:05] LABS: BUN (BLOOD UREA NITROGEN) 92 MG/DL (6-23); GLUCOSE, SERUM 127 MG/DL (60-99)
[2017-05-11 06:33] LABS: BASOPHILS 0.2 %; BASOPHILS ABSOLUTE 0.02 10/3/uL (0.0-0.16); EOSINOPHILS 1.9 %; EOSINOPHILS ABSOLUTE 0.16 10/3/uL (0.0-0.53); HEMATOCRIT 28.6 % (40.0-51.0); HEMOGLOBIN 9.4 g/dL (13.6-17.8); IMMATURE GRANULOCYTES 0.4 %; IMMATURE GRANULOCYTES ABSOLUTE 0.03 10/3/uL (0.0-0.11); LYMPHOCYTES 20.1 %; MEAN CORPUS HGB CONC 32.9 g/dL (32.0-36.0); MEAN CORPUSCULAR HEMOGLOB 26.3 pg (26.0-34.0); MEAN CORPUSCULAR VOLUME 80.1 fL (80-100); MEAN PLATELET VOLUME 10.2 fL (9.2-13.0); MONOCYTES 7.8 %; MONOCYTES ABSOLUTE 0.66 10/3/uL (0.21-1.20); NEUTROPHILS 69.6 %; NEUTROPHILS ABSOLUTE 5.89 10/3/uL (2.02-8.40); PLATELET COUNT 351 10/3/uL (150-400); RBC DISTRIBUTION WIDTH 15.6 % (12.0-16.0); RED CELL COUNT 3.57 10/6/uL (4.7-6.1); WHITE BLOOD CELLS 8.5 10/3/uL (4.5-10.5)
[2017-05-11 06:34] LABS: MANUAL DIFF NO %
[2017-05-11 06:47] LABS: ALBUMIN 2.5 G/DL (3.5-5.0); BUN (BLOOD UREA NITROGEN) 81 MG/DL (6-23); CALCIUM, SERUM 9.2 MG/DL (8.5-10.4); CHLORIDE, SERUM 104 MMOL/L (96-112); CO2 (CARBON DIOXIDE) 25 MMOL/L (24-34); CREATININE 2.19 MG/DL (0.70-1.30); GFR AFRICAN AMERICAN 40 ML/MIN (>=60); GFR NON AFRICAN AMERICAN 35 ML/MIN (>=60); GLUCOSE, SERUM 109 MG/DL (60-99); PHOSPHORUS, SERUM 3.8 MG/DL (2.5-4.5); POTASSIUM, SERUM 4.3 MMOL/L (3.5-5.3); SODIUM, SERUM 135 MMOL/L (135-148)
[2017-05-12 09:05] LABS: CREATININE 2.21 MG/DL (0.70-1.30)
[2017-05-13 06:45] LABS: BASOPHILS 0.1 %; BASOPHILS ABSOLUTE 0.02 10/3/uL (0.0-0.16); EOSINOPHILS 0.5 %; EOSINOPHILS ABSOLUTE 0.07 10/3/uL (0.0-0.53); IMMATURE GRANULOCYTES 0.4 %; IMMATURE GRANULOCYTES ABSOLUTE 0.05 10/3/uL (0.0-0.11); LYMPHOCYTES 12.2 %; LYMPHOCYTES ABSOLUTE 1.69 10/3/uL (0.67-4.30); MEAN CORPUS HGB CONC 31.4 g/dL (32.0-36.0); MEAN CORPUSCULAR HEMOGLOB 26.2 pg (26.0-34.0); MEAN PLATELET VOLUME 10.1 fL (9.2-13.0); MONOCYTES 4.8 %; MONOCYTES ABSOLUTE 0.66 10/3/uL (0.21-1.20); NEUTROPHILS ABSOLUTE 11.35 10/3/uL (2.02-8.40); PLATELET COUNT 323 10/3/uL (150-400); RBC DISTRIBUTION WIDTH 15.6 % (12.0-16.0); RED CELL COUNT 3.05 10/6/uL (4.7-6.1)
[2017-05-13 06:46] LABS: HEMATOCRIT 25.5 % (40.0-51.0); MANUAL DIFF NO %; MEAN CORPUSCULAR VOLUME 83.6 fL (80-100); WHITE BLOOD CELLS 13.8 10/3/uL (4.5-10.5)
[2017-05-13 07:01] LABS: ALBUMIN 2.5 G/DL (3.5-5.0); BUN (BLOOD UREA NITROGEN) 81 MG/DL (6-23); CALCIUM, SERUM 9.1 MG/DL (8.5-10.4); CHLORIDE, SERUM 97 MMOL/L (96-112); CO2 (CARBON DIOXIDE) 24 MMOL/L (24-34); POTASSIUM, SERUM 4.8 MMOL/L (3.5-5.3); SODIUM, SERUM 132 MMOL/L (135-148)
[2017-05-13 07:06] LABS: CREATININE 3.04 MG/DL (0.70-1.30); GFR AFRICAN AMERICAN 27 ML/MIN (>=60); GFR NON AFRICAN AMERICAN 23 ML/MIN (>=60); GLUCOSE, SERUM 184 MG/DL (60-99); PHOSPHORUS, SERUM 5.5 MG/DL (2.5-4.5)
[2017-05-14 07:03] LABS: BASOPHILS 0.1 %; BASOPHILS ABSOLUTE 0.01 10/3/uL (0.0-0.16); EOSINOPHILS 1.8 %; EOSINOPHILS ABSOLUTE 0.21 10/3/uL (0.0-0.53); HEMOGLOBIN 7.1 g/dL (13.6-17.8); IMMATURE GRANULOCYTES 0.4 %; IMMATURE GRANULOCYTES ABSOLUTE 0.05 10/3/uL (0.0-0.11); LYMPHOCYTES 13.9 %; LYMPHOCYTES ABSOLUTE 1.65 10/3/uL (0.67-4.30); MEAN CORPUS HGB CONC 32.4 g/dL (32.0-36.0); MEAN CORPUSCULAR HEMOGLOB 26.9 pg (26.0-34.0); MEAN PLATELET VOLUME 9.6 fL (9.2-13.0); MONOCYTES 8.5 %; MONOCYTES ABSOLUTE 1.01 10/3/uL (0.21-1.20); NEUTROPHILS 75.3 %; NEUTROPHILS ABSOLUTE 8.96 10/3/uL (2.02-8.40); PLATELET COUNT 271 10/3/uL (150-400); RBC DISTRIBUTION WIDTH 15.6 % (12.0-16.0); RED CELL COUNT 2.64 10/6/uL (4.7-6.1); WHITE BLOOD CELLS 11.9 10/3/uL (4.5-10.5)
[2017-05-14 07:04] LABS: HEMATOCRIT 21.9 % (40.0-51.0); MANUAL DIFF NO %
[2017-05-14 07:19] LABS: ALBUMIN 2.2 G/DL (3.5-5.0); BUN (BLOOD UREA NITROGEN) 88 MG/DL (6-23); CHLORIDE, SERUM 97 MMOL/L (96-112); CO2 (CARBON DIOXIDE) 26 MMOL/L (24-34); CREATININE 2.71 MG/DL (0.70-1.30); GFR AFRICAN AMERICAN 31 ML/MIN (>=60); GFR NON AFRICAN AMERICAN 27 ML/MIN (>=60); GLUCOSE, SERUM 152 MG/DL (60-99); PHOSPHORUS, SERUM 5.3 MG/DL (2.5-4.5); SODIUM, SERUM 131 MMOL/L (135-148)
[2017-05-15 08:55] LABS: ALBUMIN 2.4 G/DL (3.5-5.0); BUN (BLOOD UREA NITROGEN) 88 MG/DL (6-23); CHLORIDE, SERUM 97 MMOL/L (96-112); CO2 (CARBON DIOXIDE) 26 MMOL/L (24-34); CREATININE 2.41 MG/DL (0.70-1.30); GFR AFRICAN AMERICAN 36 ML/MIN (>=60); GFR NON AFRICAN AMERICAN 31 ML/MIN (>=60); GLUCOSE, SERUM 157 MG/DL (60-99); PHOSPHORUS, SERUM 5.6 MG/DL (2.5-4.5); POTASSIUM, SERUM 4.8 MMOL/L (3.5-5.3); SODIUM, SERUM 131 MMOL/L (135-148)
[2017-05-16 07:41] LABS: BASOPHILS 0.1 %; BASOPHILS ABSOLUTE 0.01 10/3/uL (0.0-0.16); EOSINOPHILS 2.1 %; EOSINOPHILS ABSOLUTE 0.19 10/3/uL (0.0-0.53); HEMATOCRIT 27.5 % (40.0-51.0); HEMOGLOBIN 8.7 g/dL (13.6-17.8); IMMATURE GRANULOCYTES 0.8 %; IMMATURE GRANULOCYTES ABSOLUTE 0.07 10/3/uL (0.0-0.11); LYMPHOCYTES 14.9 %; LYMPHOCYTES ABSOLUTE 1.36 10/3/uL (0.67-4.30); MANUAL DIFF NO %; MEAN CORPUS HGB CONC 31.6 g/dL (32.0-36.0); MEAN CORPUSCULAR HEMOGLOB 26.3 pg (26.0-34.0); MEAN CORPUSCULAR VOLUME 83.1 fL (80-100); MEAN PLATELET VOLUME 9.6 fL (9.2-13.0); MONOCYTES 5.6 %; MONOCYTES ABSOLUTE 0.51 10/3/uL (0.21-1.20); NEUTROPHILS 76.5 %; PLATELET COUNT 310 10/3/uL (150-400); RBC DISTRIBUTION WIDTH 15.5 % (12.0-16.0); RED CELL COUNT 3.31 10/6/uL (4.7-6.1); WHITE BLOOD CELLS 9.1 10/3/uL (4.5-10.5)
[2017-05-16 07:51] LABS: ALBUMIN 2.2 G/DL (3.5-5.0); BUN (BLOOD UREA NITROGEN) 89 MG/DL (6-23); CALCIUM, SERUM 8.9 MG/DL (8.5-10.4); CHLORIDE, SERUM 101 MMOL/L (96-112); CO2 (CARBON DIOXIDE) 27 MMOL/L (24-34); CREATININE 2.33 MG/DL (0.70-1.30); GFR AFRICAN AMERICAN 37 ML/MIN (>=60); GFR NON AFRICAN AMERICAN 32 ML/MIN (>=60); GLUCOSE, SERUM 145 MG/DL (60-99); PHOSPHORUS, SERUM 4.3 MG/DL (2.5-4.5); POTASSIUM, SERUM 5.1 MMOL/L (3.5-5.3); SODIUM, SERUM 135 MMOL/L (135-148)
[2017-05-17 04:59] LABS: HEMOGLOBIN 8.8 g/dL (13.6-17.8); MEAN CORPUS HGB CONC 30.3 g/dL (32.0-36.0); MEAN CORPUSCULAR HEMOGLOB 26.3 pg (26.0-34.0); MEAN PLATELET VOLUME 9.2 fL (9.2-13.0); PLATELET COUNT 290 10/3/uL (150-400); RBC DISTRIBUTION WIDTH 15.7 % (12.0-16.0); RED CELL COUNT 3.35 10/6/uL (4.7-6.1); WHITE BLOOD CELLS 10.3 10/3/uL (4.5-10.5)
[2017-05-17 05:00] LABS: MANUAL DIFF YES %; MEAN CORPUSCULAR VOLUME 86.6 fL (80-100)
[2017-05-17 05:12] LABS: CALCIUM, SERUM 9.1 MG/DL (8.5-10.4); CHLORIDE, SERUM 102 MMOL/L (96-112); CREATININE 2.15 MG/DL (0.70-1.30); GFR AFRICAN AMERICAN 41 ML/MIN (>=60); GFR NON AFRICAN AMERICAN 36 ML/MIN (>=60); GLUCOSE, SERUM 163 MG/DL (60-99); PHOSPHORUS, SERUM 3.8 MG/DL (2.5-4.5); POTASSIUM, SERUM 5.6 MMOL/L (3.5-5.3); SODIUM, SERUM 131 MMOL/L (135-148)
[2017-05-17 05:13] LABS: BUN (BLOOD UREA NITROGEN) 94 MG/DL (6-23); CO2 (CARBON DIOXIDE) 22 MMOL/L (24-34)
[2017-05-17 05:28] LABS: BAND NEUTROPHILS 11 %; EOSINOPHILS 2 %; EOSINOPHILS ABSOLUTE (CALC) 0.21 10/3/uL (0.0-0.53); HYPOCHROMIA 1+ (3-10/OIF) (0-2/OIF); LYMPHOCYTES 12 %; LYMPHOCYTES ABSOLUTE (CALC) 1.24 10/3/uL (0.67-4.30); METAMYELOCYTES 1 %; MONOCYTES 7 %; MONOCYTES ABSOLUTE (CALC) 0.72 10/3/uL (0.21-1.20); NEUTROPHILS ABSOLUTE (CALC) 8.03 10/3/uL (2.02-8.40); PLATELET ESTIMATE ADQ (ADEQUATE); SEGMENTED NEUTROPHIL (0) 67 %; TOTAL NUCLEATED CELLS 100
[2017-05-18 05:35] LABS: BASOPHILS 0.3 %; BASOPHILS ABSOLUTE 0.03 10/3/uL (0.0-0.16); EOSINOPHILS 2.4 %; EOSINOPHILS ABSOLUTE 0.25 10/3/uL (0.0-0.53); HEMATOCRIT 27.6 % (40.0-51.0); IMMATURE GRANULOCYTES 0.5 %; IMMATURE GRANULOCYTES ABSOLUTE 0.05 10/3/uL (0.0-0.11); LYMPHOCYTES 13.6 %; MEAN CORPUSCULAR HEMOGLOB 27.2 pg (26.0-34.0); MEAN PLATELET VOLUME 9.5 fL (9.2-13.0); MONOCYTES 5.6 %; MONOCYTES ABSOLUTE 0.58 10/3/uL (0.21-1.20); NEUTROPHILS 77.6 %; NEUTROPHILS ABSOLUTE 7.98 10/3/uL (2.02-8.40); PLATELET COUNT 317 10/3/uL (150-400); RBC DISTRIBUTION WIDTH 15.4 % (12.0-16.0); RED CELL COUNT 3.31 10/6/uL (4.7-6.1); WHITE BLOOD CELLS 10.3 10/3/uL (4.5-10.5)
[2017-05-18 05:43] LABS: MANUAL DIFF NO %; MEAN CORPUS HGB CONC 32.6 g/dL (32.0-36.0); MEAN CORPUSCULAR VOLUME 83.4 fL (80-100)
[2017-05-18 05:46] LABS: BUN (BLOOD UREA NITROGEN) 89 MG/DL (6-23); CALCIUM, SERUM 9.3 MG/DL (8.5-10.4); CHLORIDE, SERUM 100 MMOL/L (96-112); CO2 (CARBON DIOXIDE) 28 MMOL/L (24-34); CREATININE 2.04 MG/DL (0.70-1.30); GFR AFRICAN AMERICAN 44 ML/MIN (>=60); GFR NON AFRICAN AMERICAN 38 ML/MIN (>=60); GLUCOSE, SERUM 129 MG/DL (60-99); PHOSPHORUS, SERUM 2.9 MG/DL (2.5-4.5); POTASSIUM, SERUM 5.7 MMOL/L (3.5-5.3); SODIUM, SERUM 132 MMOL/L (135-148)
[2017-05-19 05:23] LABS: BASOPHILS 0.1 %; BASOPHILS ABSOLUTE 0.01 10/3/uL (0.0-0.16); EOSINOPHILS 2.4 %; EOSINOPHILS ABSOLUTE 0.24 10/3/uL (0.0-0.53); HEMATOCRIT 25.8 % (40.0-51.0); HEMOGLOBIN 8.5 g/dL (13.6-17.8); IMMATURE GRANULOCYTES 0.3 %; IMMATURE GRANULOCYTES ABSOLUTE 0.03 10/3/uL (0.0-0.11); LYMPHOCYTES 18.6 %; LYMPHOCYTES ABSOLUTE 1.84 10/3/uL (0.67-4.30); MEAN CORPUS HGB CONC 32.9 g/dL (32.0-36.0); MEAN CORPUSCULAR HEMOGLOB 27.8 pg (26.0-34.0); MEAN CORPUSCULAR VOLUME 84.3 fL (80-100); MEAN PLATELET VOLUME 9.3 fL (9.2-13.0); MONOCYTES 5.7 %; MONOCYTES ABSOLUTE 0.56 10/3/uL (0.21-1.20); NEUTROPHILS 72.9 %; NEUTROPHILS ABSOLUTE 7.19 10/3/uL (2.02-8.40); PLATELET COUNT 293 10/3/uL (150-400); RBC DISTRIBUTION WIDTH 15.6 % (12.0-16.0); RED CELL COUNT 3.06 10/6/uL (4.7-6.1); WHITE BLOOD CELLS 9.9 10/3/uL (4.5-10.5)
[2017-05-19 05:37] LABS: ALBUMIN 2.3 G/DL (3.5-5.0); CALCIUM, SERUM 8.9 MG/DL (8.5-10.4); CHLORIDE, SERUM 99 MMOL/L (96-112); CO2 (CARBON DIOXIDE) 29 MMOL/L (24-34); CREATININE 2.11 MG/DL (0.70-1.30); GFR AFRICAN AMERICAN 42 ML/MIN (>=60); GFR NON AFRICAN AMERICAN 36 ML/MIN (>=60); GLUCOSE, SERUM 129 MG/DL (60-99); POTASSIUM, SERUM 4.8 MMOL/L (3.5-5.3); SODIUM, SERUM 134 MMOL/L (135-148)
[2017-05-19 05:43] LABS: MANUAL DIFF NO %
[2017-05-19 05:46] LABS: BUN (BLOOD UREA NITROGEN) 83 MG/DL (6-23)
[2017-05-20 06:37] LABS: BASOPHILS 0.2 %; BASOPHILS ABSOLUTE 0.02 10/3/uL (0.0-0.16); EOSINOPHILS 2.9 %; EOSINOPHILS ABSOLUTE 0.27 10/3/uL (0.0-0.53); HEMOGLOBIN 9.1 g/dL (13.6-17.8); IMMATURE GRANULOCYTES 0.4 %; IMMATURE GRANULOCYTES ABSOLUTE 0.04 10/3/uL (0.0-0.11); LYMPHOCYTES 18.3 %; LYMPHOCYTES ABSOLUTE 1.69 10/3/uL (0.67-4.30); MEAN CORPUS HGB CONC 31.8 g/dL (32.0-36.0); MEAN CORPUSCULAR HEMOGLOB 26.5 pg (26.0-34.0); MEAN CORPUSCULAR VOLUME 83.1 fL (80-100); MEAN PLATELET VOLUME 9.2 fL (9.2-13.0); MONOCYTES 6.4 %; MONOCYTES ABSOLUTE 0.59 10/3/uL (0.21-1.20); NEUTROPHILS 71.8 %; NEUTROPHILS ABSOLUTE 6.63 10/3/uL (2.02-8.40); PLATELET COUNT 298 10/3/uL (150-400); RBC DISTRIBUTION WIDTH 15.3 % (12.0-16.0); RED CELL COUNT 3.44 10/6/uL (4.7-6.1); WHITE BLOOD CELLS 9.2 10/3/uL (4.5-10.5)
[2017-05-20 06:39] LABS: HEMATOCRIT 28.6 % (40.0-51.0); MANUAL DIFF NO %
[2017-05-20 06:47] LABS: BUN (BLOOD UREA NITROGEN) 82 MG/DL (6-23); CHLORIDE, SERUM 98 MMOL/L (96-112); GFR AFRICAN AMERICAN 48 ML/MIN (>=60); GFR NON AFRICAN AMERICAN 41 ML/MIN (>=60); PHOSPHORUS, SERUM 4.1 MG/DL (2.5-4.5); SODIUM, SERUM 137 MMOL/L (135-148)
[2017-05-20 06:48] LABS: CO2 (CARBON DIOXIDE) 34 MMOL/L (24-34); GLUCOSE, SERUM 91 MG/DL (60-99)
[2017-05-21 06:23] LABS: BASOPHILS 0.2 %; BASOPHILS ABSOLUTE 0.02 10/3/uL (0.0-0.16); EOSINOPHILS 2.9 %; EOSINOPHILS ABSOLUTE 0.26 10/3/uL (0.0-0.53); HEMATOCRIT 29.2 % (40.0-51.0); HEMOGLOBIN 9.5 g/dL (13.6-17.8); IMMATURE GRANULOCYTES 0.6 %; IMMATURE GRANULOCYTES ABSOLUTE 0.05 10/3/uL (0.0-0.11); LYMPHOCYTES 20.3 %; LYMPHOCYTES ABSOLUTE 1.82 10/3/uL (0.67-4.30); MEAN CORPUS HGB CONC 32.5 g/dL (32.0-36.0); MEAN CORPUSCULAR HEMOGLOB 26.9 pg (26.0-34.0); MEAN CORPUSCULAR VOLUME 82.7 fL (80-100); MEAN PLATELET VOLUME 9.3 fL (9.2-13.0); MONOCYTES 5.1 %; MONOCYTES ABSOLUTE 0.46 10/3/uL (0.21-1.20); NEUTROPHILS 70.9 %; NEUTROPHILS ABSOLUTE 6.34 10/3/uL (2.02-8.40); PLATELET COUNT 292 10/3/uL (150-400); RBC DISTRIBUTION WIDTH 15.6 % (12.0-16.0); RED CELL COUNT 3.53 10/6/uL (4.7-6.1)
[2017-05-21 06:25] LABS: MANUAL DIFF NO %
[2017-05-21 06:32] LABS: BUN (BLOOD UREA NITROGEN) 81 MG/DL (6-23); CHLORIDE, SERUM 99 MMOL/L (96-112); CO2 (CARBON DIOXIDE) 32 MMOL/L (24-34); CREATININE 2.11 MG/DL (0.70-1.30); GFR AFRICAN AMERICAN 42 ML/MIN (>=60); GFR NON AFRICAN AMERICAN 36 ML/MIN (>=60); PHOSPHORUS, SERUM 3.7 MG/DL (2.5-4.5); SODIUM, SERUM 137 MMOL/L (135-148)
[2017-05-21 06:34] LABS: GLUCOSE, SERUM 138 MG/DL (60-99)
== END 2017-05-21 13:50 | DRG 617 ==
LOC: 5SO 17:26
PROVIDERS: Internal Medicine; Nurse Practitioner; Pediatrics; Registered Nurse; Specialist
PROC: 0Y6G0ZZ Detachment at Left Knee Region, Open Approach (ICD-10-PCS; principal; 2017-05-12 13:45)
PROC: 30233N1 Transfusion of Nonautologous Red Blood Cells into Peripheral Vein, Percutaneous Approach (ICD-10-PCS; 2017-05-14)
DX: E11.621 Type 2 diabetes mellitus with foot ulcer (principal); E87.1 Hypo-osmolality and hyponatremia; N18.4 Chronic kidney disease, stage 4 (severe); E11.21 Type 2 diabetes mellitus with diabetic nephropathy; N17.9 Acute kidney failure, unspecified; E11.22 Type 2 diabetes mellitus with diabetic chronic kidney disease; D62 Acute posthemorrhagic anemia; M86.8X7 Other osteomyelitis, ankle and foot; E11.65 Type 2 diabetes mellitus with hyperglycemia; E11.319 Type 2 diabetes mellitus with unspecified diabetic retinopathy without macular edema; E11.42 Type 2 diabetes mellitus with diabetic polyneuropathy; E78.5 Hyperlipidemia, unspecified; K21.9 Gastro-esophageal reflux disease without esophagitis; E83.42 Hypomagnesemia; E66.01 Morbid (severe) obesity due to excess calories; Z68.32 Body mass index [BMI] 32.0-32.9, adult; I12.9 Hypertensive chronic kidney disease with stage 1 through stage 4 chronic kidney disease, or unspecified chronic kidney disease; I95.81 Postprocedural hypotension; E87.70 Fluid overload, unspecified; Z83.3 Family history of diabetes mellitus; Z82.49 Family history of ischemic heart disease and other diseases of the circulatory system; Z80.8 Family history of malignant neoplasm of other organs or systems; Z79.4 Long term (current) use of insulin; E66.9 Obesity, unspecified
CPT/HCPCS: 36415; 71010; 73630-LT; 74000; 78315; 80048; 80053; 80069; 80202; 81001; 81050; 82565; 82570; 82575; 82962; 83036; 83735; 83880; 84100; 84132; 84145; 84156; 84300; 84439; 84443; 84540; 85025; 85610; 85730; 86850; 86900; 86901; 86920; 87040; 87070; 87077; 87086; 87186; 87205; 88307; 93005; 97110-GO; 97110-GP; 97162-GP; 97166-GO; 97530-GO; 97530-GP; A9270-GY; A9561; G0463; J0610; J1170; J1940; J2185; J2250; J2270; J2370; J2405; J2543; J3010; J3370; J3475; P9016